=== PATIENT | female | born 1965 | race Caucasian/White ===

== ENCOUNTER 2023-03-05 20:10 | Emergency (ER) | payer OTHER ==
--- OUTSIDE RECORDS SUMMARY | 2023-03-05 20:15 | XMS REPORT | Continuity of Care Document ---
:1965 Author Organization [facility] t Address [address] [place] [address] [place] [id number] Care Team Providers Name Role Phone ROSINA PIMENTEL Primary Care Physician Unavailable SCOTTY JUAREZ Attending Clinician Unavailable ZOË GROVE Attending Clinician Unavailable DEE ARMSTRONG Attending Clinician Unavailable LISHA HAIRSTON Attending Clinician Unavailable LISHA HAIRSTON Attending Clinician Unavailable Zoë Grove MD Attending Clinician Lab, Ang - Db Attending Clinician Unavailable Doctor Unassigned, [place] Attending Clinician Unavailable ROSINA PIMENTEL Attending Clinician Unavailable Payers Payer Name Policy Type Policy Number Effective Date Expiration Date S padmaja [employer] MEDICARE [id number] 2020 ADV 00:00:00 Problems Condition Condition Condition Status Onset Resolution Last Treating Co mments Source Name Details Category Date Date Treatment Clinician Date Herniated Herniated Disease Active Uni vers cervical cervical 7-28 ity [place] interverte [place]verte 00:[place] bral disc bral disc 00 Medi veronique Branch Herniated Herniated Disease Active Uni vers lumbar lumbar 7-28 ity of interverte interverte 00:[place] bral disc bral disc 00 Medi veronique Branch Acquired Acquired Disease Active Unive rs hypothyroi hypothyroi 7-28 it y of dism dism 00:00: [place] 00 Medical Branch Gastroesop Gastroesop Disease Active U nivers hageal hageal 7- ity of reflux reflux 00:00: [place] disease disease 00 Medical without without Branch esophagiti esophagiti s s Anxiety Anxiety Disease Active Univers disorder disorder 01-12 ity of 00:00: 00 Medical Branch Mild Mild Disease Active Univers intermitte intermitte 01-12 it y of nt asthma nt asthma 00:00: [place] without without 00 Medical complicati complicati Br anch on on Migraine Migraine Disease Active Unive rs without without 01-12 ity of aura and aura and 00:00: [place] without without 00 Medical status status Branch migrainosu migrainosu s, not s, not intractabl intractabl e e Allergies, Adverse Reactions, Alerts Allergy Allergy Status Severity Reaction(s) Onset Inactive Treating Comm ents Source Name Type Date Date Clinician Penicill Propensi Active Itching Unive rs in ty to 01-12 ity of adverse 00:00: [place] reaction 00 Medical s to Branch drug Sulfa Propensi Active Other - See Uni vers (Sulfona ty to comments 01-12 ity of mide adverse 00:00: [place] Antibiot reaction 00 Medica l ics) s to Branch drug Venom-Wa Propensi Active Anaphylaxis Red wasp s Univers sp ty to 01-12 ity of adverse 00:00: [place] reaction 00 Medical s to Branch drug SULFA Drug Active High Hallucinates Univ ers (SULFONA Class 01-12 ity of MIDE 00:00: [place] ANTIBIOT 00 Medical ICS) Branch VENOM-WA DRUG Active High Anaphylaxis Uni vers SP INGREDI 01-12 ity of 00:00: [place] 00 Medical Branch PENICILL DRUG Active Med Hives Univers IN INGREDI 01-12 ity of 00:00: [place] 00 Medical Branch NO KNOWN Drug Active Univers ALLERGIE Class ity of S [facility] Social History Social Habit Start Date Stop Date Quantity Comments Source Gender identity Universit y of [facility] Sexual orientation Univer sity of [facility] Alcohol intake 2023-02-15 2023-02-15 .29 /d University of 00:00:00 00:00:00 [facility] Tobacco use and 2023-01-12 2023-01-12 Smokeless Universit y of exposure 00:00:00 00:00:00 tobacco non-user [facility] History of Social 2023-01-12 2023-01-12 Univers ity of function 00:00:00 00:00:00 [facility] Sex [birth year] Universit y of 00:00:00 00:00:00 [facility] Smoking Status Start Date Stop Date Source Never smoked tobacco [facility] Medications Ordered Filled Start Stop Current Ordering Indication Dosage Frequency Signature Comments Components Source Medication Medication Date Date Medication? Clinician (SIG) Name Name HYDROcodone 3-0 Yes 2745 1{tbl} Take 1 Un robert -acetaminop 9-13 tablet by ity of hen 10-325 00:00: mouth [place] mg tablet 00 every 6 Medical (six) Branch hours as needed for Pain (scale 7-10). Indication s: chronic pain HYDROcodone 2023-0 Yes 2745 1{tbl} Take 1 Un robert -acetaminop 9-13 tablet by ity of hen 10-325 00:00: mouth [place] mg tablet 00 every 6 Medical (six) Branch hours as needed for Pain (scale 7-10). Indication s: chronic pain gabapentin 2023-0 Yes 300mg Take 0.5 Un robert 600 mg 8-31 tablets by ity of tablet 11:10: mouth at [place] [address] bedtime. Medical Branch gabapentin 2023-0 Yes 300mg Take 0.5 Un [place] 600 mg 8-31 tablets by ity of tablet 11:10: mouth at [place] [address] bedtime. Medical Branch gabapentin 2023-0 Yes 300mg Take 0.5 [place] 600 mg 8-31 tablets by ity of tablet 11:10: mouth at [place] [address] bedtime. Medical Branch gabapentin 2023-0 Yes 300mg Take 0.5 Un [place] 600 mg 8-31 tablets by ity of tablet 11:10: mouth at [place] [address] bedtime. Medical Branch gabapentin 2023-0 Yes 300mg Take 0.5 Un [place] 600 mg 8-31 tablets by ity of tablet 11:10: mouth at [place] [address] bedtime. Medical Branch gabapentin 2023-0 Yes 300mg Take 0.5 [place] 600 mg 8-31 tablets by ity of tablet 11:10: mouth at [place] [address] bedtime. Medical Branch gabapentin 2023-0 Yes 300mg Take 0.5 Un [place] 600 mg 8-31 tablets by ity of tablet 11:10: mouth at [place] 24 bedtime. Medical Branch gabapentin 2023-0 Yes 300mg Take 0.5 Un ro[place] 600 mg 8-31 tablets by ity of tablet 11:10: mouth at [place] 24 bedtime. Medical Branch progesteron 2023-0 2023- No 100mg Take 1 Un robert e 100 mg 7-28 -28 capsule by ity of capsule 08:38: 00:00 mouth in [place] 36 :00 the Medical morning. Branch ondansetron 2023-0 2023- No 4mg Take 1 Uni vers 4 mg tablet 7-12 01-28 tablet by it y of 08:38: 00:00 mouth [place] 36 :00 every 6 Medical (six) Branch hours as needed for Nausea and Vomiting (N/V). progesteron 3-0 2023- No 100mg Take 1 Un robert e 100 mg 7-12 01- capsule by ity of capsule 08:38: 00:00 mouth in [place] 36 :00 the Medical morning. Branch ondansetron 2022-0 2023- No 4mg Take 1 Uni vers 4 mg tablet 7-12 01- tablet by it y of 08:38: 00:00 mouth [place] 36 :00 every 6 Medical (six) Branch hours as needed for Nausea and Vomiting (N/V). gabapentin 2023-0 Yes 300mg Take 0.5 Un ro[place] 600 mg 7-28 tablets by ity of tablet 08:27: mouth at [place] [address] bedtime. Medical Branch gabapentin 2023-0 Yes 300mg Take 0.5 Un ro[place] 600 mg 7-28 tablets by ity of tablet 08:27: mouth at [place] [address] bedtime. Medical Branch gabapentin 2023-0 Yes 300mg Take 0.5 Un [place] 600 mg 7-28 tablets by ity of tablet 08:27: mouth at [place] [address] bedtime. Medical Branch gabapentin 2023-0 Yes 300mg Take 0.5 Un [place] 600 mg 7-28 tablets by ity of tablet 08:27: mouth at [place] 34 bedtime. Medical Branch pantoprazol 2023-0 Yes 40mg Take 1 Univ ers e 40 mg EC 7-28 tablet by ity of tablet 08:12: mouth once [place] 32 daily as Medical needed for Branch Indigestio n. pantoprazol 2023-0 Yes 40mg Take 1 Univ ers e 40 mg EC 7-28 tablet by ity of tablet 08:12: mouth once [place] 32 daily as Medical needed for Branch Indigestio n. pantoprazol 2023-0 Yes 40mg Take 1 Univ ers e 40 mg EC 7-28 tablet by ity of tablet 08:12: mouth once [place] 32 daily as Medical needed for Branch Indigestio n. pantoprazol 2023-0 Yes 40mg Take 1 Univ ers e 40 mg EC 7-28 tablet by ity of tablet 08:12: mouth once [place] 32 daily as Medical needed for Branch Indigestio n. pantoprazol 2023-0 Yes 40mg Take 1 Univ ers e 40 mg EC 7-28 tablet by ity of tablet 08:12: mouth once [place] 32 daily as Medical needed for Branch Indigestio n. pantoprazol 2023-0 Yes 40mg Take 1 Univ ers e 40 mg EC 7-28 tablet by ity of tablet 08:12: mouth once [place] 32 daily as Medical needed for Branch Indigestio n. pantoprazol 2023-0 Yes 40mg Take 1 Univ ers e 40 mg EC 7-28 tablet by ity of tablet 08:12: mouth once [place] 32 daily as Medical needed for Branch Indigestio n. pantoprazol 2023-0 Yes 40mg Take 1 Univ ers e 40 mg EC 7-28 tablet by ity of tablet 08:12: mouth once [place] 32 daily as Medical needed for Branch Indigestio n. pantoprazol 2023-0 Yes 40mg Take 1 Univ ers e 40 mg EC 7-28 tablet by ity of tablet 08:12: mouth once [place] 32 daily as Medical needed for Branch Indigestio n. pantoprazol 2023-0 Yes 40mg Take 1 Univ ers e 40 mg EC 7-28 tablet by ity of tablet 08:12: mouth once [place] 32 daily as Medical needed for Branch Indigestio n. pantoprazol 2023-0 Yes 40mg Take 1 Univ ers e 40 mg EC 7-28 tablet by ity of tablet 08:12: mouth once [place] 32 daily as Medical needed for Branch Indigestio n. pantoprazol 2023-0 Yes 40mg Take 1 Univ ers e 40 mg EC 7-28 tablet by ity of tablet 08:12: mouth once [place] 32 daily as Medical needed for Branch Indigestio n. ondansetron 3-0 Yes [id number] 4mg Take 1 Univers 4 mg tablet 7-28 tablet by ity of 00:00: mouth [place] 00 every 8 Medical (eight) Branch hours as needed for Nausea and Vomiting (N/V). progesteron 2023-0 Yes [id number] 100mg Take 1 Univers e 100 mg 7-28 capsule by ity o f capsule 00:00: mouth in [place] 00 the Medical morning. Branch ondansetron 3-0 Yes [id number] 4mg Take 1 Univers 4 mg tablet 7-28 tablet by ity of 00:00: mouth [place] 00 every 8 Medical (eight) Branch hours as needed for Nausea and Vomiting (N/V). progesteron 2023-0 Yes [id number] 100mg Take 1 Univers e 100 mg 7-28 capsule by ity o f capsule 00:00: mouth in [place] 00 the Medical morning. Branch ondansetron 2022-0 Yes [id number] 4mg Take 1 Univers 4 mg tablet 7-28 tablet by ity of 00:00: mouth [place] 00 every 8 Medical (eight) Branch hours as needed for Nausea and Vomiting (N/V). progesteron 3-0 Yes [id number] 100mg Take 1 Univers e 100 mg 7-28 capsule by ity o f capsule 00:00: mouth in [place] 00 the Medical morning. Branch ondansetron 2022-0 Yes [id number] 4mg Take 1 Univers 4 mg tablet 7-28 tablet by ity of 00:00: mouth [place] 00 every 8 Medical (eight) Branch hours as needed for Nausea and Vomiting (N/V). progesteron 2023-0 Yes [id number] 100mg Take 1 Univers e 100 mg 7-28 capsule by ity o f capsule 00:00: mouth in [place] 00 the Medical morning. Branch ondansetron 3-0 Yes [id number] 4mg Take 1 Univers 4 mg tablet 7-28 tablet by ity of 00:00: mouth [place] 00 every 8 Medical (eight) Branch hours as needed for Nausea and Vomiting (N/V). progesteron 2023-0 Yes [id number] 100mg Take 1 Univers e 100 mg 7-28 capsule by ity o f capsule 00:00: mouth in [place] 00 the Medical morning. Branch ondansetron 3-0 Yes [id number] 4mg Take 1 Univers 4 mg tablet 7-28 tablet by ity of 00:00: mouth [place] 00 every 8 Medical (eight) Branch hours as needed for Nausea and Vomiting (N/V). progesteron 2023-0 Yes [id number] 100mg Take 1 Univers e 100 mg 7-28 capsule by ity o f capsule 00:00: mouth in [place] 00 the Medical morning. Branch ondansetron 3-0 Yes [id number] 4mg Take 1 Univers 4 mg tablet 7-28 tablet by ity of 00:00: mouth [place] 00 every 8 Medical (eight) Branch hours as needed for Nausea and Vomiting (N/V). progesteron 2023-0 Yes [id number] 100mg Take 1 Univers e 100 mg 7-28 capsule by ity o f capsule 00:00: mouth in [place] 00 the Medical morning. Branch ondansetron 3-0 Yes [id number] 4mg Take 1 Univers 4 mg tablet 7-28 tablet by ity of 00:00: mouth [place] 00 every 8 Medical (eight) Branch hours as needed for Nausea and Vomiting (N/V). progesteron 2023-0 Yes [id number] 100mg Take 1 Univers e 100 mg 7-28 capsule by ity o f capsule 00:00: mouth in [place] 00 the Medical morning. Branch ondansetron 3-0 Yes [id number] 4mg Take 1 Univers 4 mg tablet 7-28 tablet by ity of 00:00: mouth [place] 00 every 8 Medical (eight) Branch hours as needed for Nausea and Vomiting (N/V). progesteron 2023-0 Yes [id number] 100mg Take 1 Univers e 100 mg 7-28 capsule by ity o f capsule 00:00: mouth in [place] 00 the Medical morning. Branch ondansetron 3-0 Yes [id number] 4mg Take 1 Univers 4 mg tablet 7-28 tablet by ity of 00:00: mouth [place] 00 every 8 Medical (eight) Branch hours as needed for Nausea and Vomiting (N/V). progesteron 2023-0 Yes [id number] 100mg Take 1 Univers e 100 mg 7-28 capsule by ity o f capsule 00:00: mouth in [place] 00 the Medical morning. Branch ondansetron 2023-0 Yes [id number] 4mg Take 1 Univers 4 mg tablet 7-28 tablet by ity of 00:00: mouth [place] 00 every 8 Medical (eight) Branch hours as needed for Nausea and Vomiting (N/V). progesteron 2023-0 Yes [id number] 100mg Take 1 Univers e 100 mg 7-28 capsule by ity o f capsule 00:00: mouth in [place] 00 the Medical morning. Branch ondansetron 3-0 Yes [id number] 4mg Take 1 Univers 4 mg tablet 7-28 tablet by ity of 00:00: mouth [place] 00 every 8 Medical (eight) Branch hours as needed for Nausea and Vomiting (N/V). progesteron 2023-0 Yes [id number] 100mg Take 1 Univers e 100 mg 7-28 capsule by ity o f capsule 00:00: mouth in [place] the Medical morning. Branch clonazePAM 3-0 Yes PLEASE SEE U nivers 1 mg tablet 7-25 ATTACHED ity of 00:00: FOR [place] DETAILED Medical DIRECTIONS Branch clonazePAM 2023-0 Yes PLEASE SEE U nivers 1 mg tablet 7-25 ATTACHED ity of 00:00: FOR [place] DETAILED Medical DIRECTIONS Branch clonazePAM 2023-0 Yes PLEASE SEE U nivers 1 mg tablet 7-25 ATTACHED ity of 00:00: FOR [place] DETAILED Medical DIRECTIONS Branch clonazePAM 2023-0 Yes PLEASE SEE U nivers 1 mg tablet 7-25 ATTACHED ity of 00:00: FOR [place] DETAILED Medical DIRECTIONS Branch clonazePAM 2023-0 Yes PLEASE SEE U nivers 1 mg tablet 7-25 ATTACHED ity of 00:00: FOR [place] DETAILED Medical DIRECTIONS Branch clonazePAM 2023-0 Yes PLEASE SEE U nivers 1 mg tablet 7-25 ATTACHED ity of 00:00: FOR [place] DETAILED Medical DIRECTIONS Branch clonazePAM 2023-0 Yes PLEASE SEE U nivers 1 mg tablet 7-25 ATTACHED ity of 00:00: FOR [place] DETAILED Medical DIRECTIONS Branch clonazePAM 2023-0 Yes PLEASE SEE U nivers 1 mg tablet 7-25 ATTACHED ity of 00:00: FOR [place] DETAILED Medical DIRECTIONS Branch HYDROcodone 2023-0 Yes TAKE 1 Univ ers -acetaminop 7-18 TABLET BY ity of hen 10-325 00:00: MOUTH FOUR [place] mg tablet 00 TIMES A Medical DAY Branch HYDROcodone 2023-0 Yes TAKE 1 Univ ers -acetaminop 7-18 TABLET BY ity of hen 10-325 00:00: MOUTH FOUR [place] mg tablet 00 TIMES A Medical DAY Branch HYDROcodone 2022-0 Yes TAKE 1 Univ ers -acetaminop 7-18 TABLET BY ity of hen 10-325 00:00: MOUTH FOUR [place] mg tablet 00 TIMES A Medical DAY Branch HYDROcodone 2022-0 Yes TAKE 1 Univ ers -acetaminop 7-18 TABLET BY ity of hen 10-325 00:00: MOUTH FOUR [place] mg tablet 00 TIMES A Medical DAY Branch HYDROcodone 2022-0 Yes TAKE 1 Univ ers -acetaminop 7-18 TABLET BY ity of hen 10-325 00:00: MOUTH FOUR [place] mg tablet 00 TIMES A Medical DAY Branch HYDROcodone 2022-0 Yes TAKE 1 Univ ers -acetaminop 7-18 TABLET BY ity of hen 10-325 00:00: MOUTH FOUR [place] mg tablet 00 TIMES A Medical DAY Branch HYDROcodone 2022-0 Yes TAKE 1 Univ ers -acetaminop 7-18 TABLET BY ity of hen 10-325 00:00: MOUTH FOUR [place] mg tablet 00 TIMES A Medical DAY Branch HYDROcodone 2022-0 Yes TAKE 1 Univ ers -acetaminop 7-18 TABLET BY ity of hen 10-325 00:00: MOUTH FOUR [place] mg tablet 00 TIMES A Medical DAY Branch HYDROcodone 2022-0 Yes TAKE 1 Univ ers -acetaminop 7-18 TABLET BY ity of hen 10-325 00:00: MOUTH FOUR [place] mg tablet 00 TIMES A Medical DAY Branch HYDROcodone 2022-0 Yes TAKE 1 Univ ers -acetaminop 7-18 TABLET BY ity of hen 10-325 00:00: MOUTH FOUR [place] mg tablet 00 TIMES A Medical DAY Branch HYDROcodone 2023-0 2023- No TAKE 1 Uni vers -acetaminop 7-18 09-13 TABLET BY it y of hen 10-325 00:00: 00:00 MOUTH FOUR [place] mg tablet 00 :00 TIMES A Medical DAY Branch dextroamphe 3-0 Yes 20mg Take 1 Univ ers tamine-amph 6-27 tablet by ity of etamine 20 00:00: mouth in [place] mg tablet 00 the Medical morning Branch and 1 tablet at noon and 1 tablet in the evening. dextroamphe 2023-0 Yes 20mg Take 1 Univ ers tamine-amph 6-27 tablet by ity of etamine 20 00:00: mouth in [place] mg tablet 00 the Medical morning Branch and 1 tablet at noon and 1 tablet in the evening. dextroamphe 2023-0 Yes 20mg Take 1 Univ ers tamine-amph 6-27 tablet by ity of etamine 20 00:00: mouth in [place] mg tablet 00 the Medical morning Branch and 1 tablet at noon and 1 tablet in the evening. dextroamphe 2023-0 Yes 20mg Take 1 Univ ers tamine-amph 6-27 tablet by ity of etamine 20 00:00: mouth in [place] mg tablet 00 the Medical morning Branch and 1 tablet at noon and 1 tablet in the evening. dextroamphe 2023-0 Yes 20mg Take 1 Univ ers tamine-amph 6-27 tablet by ity of etamine 20 00:00: mouth in [place] mg tablet 00 the Medical morning Branch and 1 tablet at noon and 1 tablet in the evening. dextroamphe 2023-0 Yes 20mg Take 1 Univ ers tamine-amph 6-27 tablet by ity of etamine 20 00:00: mouth in [place] mg tablet 00 the Medical morning Branch and 1 tablet at noon and 1 tablet in the evening. dextroamphe 2023-0 Yes 20mg Take 1 Univ ers tamine-amph 6-27 tablet by ity of etamine 20 00:00: mouth in [place] mg tablet 00 the Medical morning Branch and 1 tablet at noon and 1 tablet in the evening. dextroamphe 2023-0 Yes 20mg Take 1 Univ ers tamine-amph 6-27 tablet by ity of etamine 20 00:00: mouth in [place] mg tablet 00 the Medical morning Branch and 1 tablet at noon and 1 tablet in the evening. dextroamphe 2023-0 Yes 20mg Take 1 Univ ers tamine-amph 6-27 tablet by ity of etamine 20 00:00: mouth in [place] mg tablet 00 the Medical morning Branch and 1 tablet at noon and 1 tablet in the evening. dextroamphe 2023-0 Yes 20mg Take 1 Univ ers tamine-amph 6-27 tablet by ity of etamine 20 00:00: mouth in [place] mg tablet 00 the Medical morning Branch and 1 tablet at noon and 1 tablet in the evening. dextroamphe 2023-0 Yes 20mg Take 1 Univ ers tamine-amph 6-27 tablet by ity of etamine 20 00:00: mouth in [place] mg tablet 00 the Medical morning Branch and 1 tablet at noon and 1 tablet in the evening. dextroamphe 2023-0 Yes 20mg Take 1 Univ ers tamine-amph 6-27 tablet by ity of etamine 20 00:00: mouth in [place] mg tablet 00 the Medical morning Branch and 1 tablet at noon and 1 tablet in the evening. levothyroxi 2-0 Yes 150ug Take 1 Uni vers ne 7-24 tablet by ity of (LEVOXYL) 00:00: mouth [place] 150 mcg 00 every Medical tablet morning. Branch levothyroxi 2-0 Yes 150ug Take 1 Uni vers ne 7-24 tablet by ity of (LEVOXYL) 00:00: mouth [place] 150 mcg 00 every Medical tablet morning. Branch levothyroxi 2-0 Yes 150ug Take 1 Uni vers ne 7-24 tablet by ity of (LEVOXYL) 00:00: mouth [place] 150 mcg 00 every Medical tablet morning. Branch levothyroxi 2-0 Yes 150ug Take 1 Uni vers ne 7-24 tablet by ity of (LEVOXYL) 00:00: mouth [place] 150 mcg 00 every Medical tablet morning. Branch levothyroxi 2-0 Yes 150ug Take 1 Uni vers ne 7-24 tablet by ity of (LEVOXYL) 00:00: mouth [place] 150 mcg 00 every Medical tablet morning. Branch levothyroxi 2022-0 Yes 150ug Take 1 Uni vers ne 7-24 tablet by ity of (LEVOXYL) 00:00: mouth [place] 150 mcg 00 every Medical tablet morning. Branch levothyroxi 2-0 Yes 150ug Take 1 Uni vers ne 7-24 tablet by ity of (LEVOXYL) 00:00: mouth [place] 150 mcg 00 every Medical tablet morning. Branch levothyroxi 2022-0 Yes 150ug Take 1 Uni vers ne 7-24 tablet by ity of (LEVOXYL) 00:00: mouth [place] 150 mcg 00 every Medical tablet morning. Branch levothyroxi 2022-0 Yes 150ug Take 1 Uni vers ne 7-24 tablet by ity of (LEVOXYL) 00:00: mouth [place] 150 mcg 00 every Medical tablet morning. Branch levothyroxi 2021-0 Yes 150ug Take 1 Uni vers ne 7-24 tablet by ity of (LEVOXYL) 00:00: mouth [place] 150 mcg 00 every Medical tablet morning. Branch levothyroxi 2021-0 Yes 150ug Take 1 Uni vers ne 7-24 tablet by ity of (LEVOXYL) 00:00: mouth [place] 150 mcg 00 every Medical tablet morning. Branch levothyroxi 2021-0 Yes 150ug Take 1 Uni vers ne 7-24 tablet by ity of (LEVOXYL) 00:00: mouth [place] 150 mcg 00 every Medical tablet morning. Branch meloxicam 2015-0 Yes 15mg Take 1 Univer s 15 mg 1-01 tablet by ity of tablet 00:00: mouth in [place] 00 the Medical morning. Branch meloxicam 2015-0 Yes 15mg Take 1 Univer s 15 mg 1-01 tablet by ity of tablet 00:00: mouth in [place] 00 the Medical morning. Branch meloxicam 2015-0 Yes 15mg Take 1 Univer s 15 mg 1-01 tablet by ity of tablet 00:00: mouth in [place] 00 the Medical morning. Branch meloxicam 2015-0 Yes 15mg Take 1 Univer s 15 mg 1-01 tablet by ity of tablet 00:00: mouth in [place] 00 the Medical morning. Branch meloxicam 2015-0 Yes 15mg Take 1 Univer s 15 mg 1-01 tablet by ity of tablet 00:00: mouth in [place] 00 the Medical morning. Branch meloxicam 2016-0 Yes 15mg Take 1 Univer s 15 mg 1-01 tablet by ity of tablet 00:00: mouth in [place] 00 the Medical morning. Branch meloxicam 2016-0 Yes 15mg Take 1 Univer s 15 mg 1-01 tablet by ity of tablet 00:00: mouth in [place] 00 the Medical morning. Branch meloxicam 2016-0 Yes 15mg Take 1 Univer s 15 mg 1-01 tablet by ity of tablet 00:00: mouth in [place] 00 the Medical morning. Branch meloxicam 2016-0 Yes 15mg Take 1 Univer s 15 mg 1-01 tablet by ity of tablet 00:00: mouth in [place] 00 the Medical morning. Branch meloxicam 2016-0 Yes 15mg Take 1 Univer s 15 mg 1-01 tablet by ity of tablet 00:00: mouth in [place] 00 the Medical morning. Branch meloxicam 2016-0 Yes 15mg Take 1 Univer s 15 mg 1-01 tablet by ity of tablet 00:00: mouth in [place] 00 the Medical morning. Branch meloxicam 2016-0 Yes 15mg Take 1 Univer s 15 mg 1-01 tablet by ity of tablet 00:00: mouth in [place] 00 the Medical morning. Branch sucralfate 2015-0 Yes 1g Take 1 Unive rs 1 gram 1-01 tablet by ity of tablet 00:00: mouth 4 (four) Medical times Branch daily. dicyclomine 2015-0 Yes 20mg Take 1 Univ ers 20 mg 1-01 tablet by ity of tablet 00:00: mouth 2 (two) Medical times Branch daily as needed. sucralfate 2015-0 Yes 1g Take 1 Unive rs 1 gram 1-01 tablet by ity of tablet 00:00: mouth 4 (four) Medical times Branch daily. dicyclomine 2015-0 Yes 20mg Take 1 Univ ers 20 mg 1-01 tablet by ity of tablet 00:00: mouth 2 (two) Medical times Branch daily as needed. sucralfate 2015-0 Yes 1g Take 1 Unive rs 1 gram 1-01 tablet by ity of tablet 00:00: mouth (four) Medical times Branch daily as needed. dicyclomine 2015-0 Yes 20mg Take 1 Univ ers 20 mg 1-01 tablet by ity of tablet 00:00: mouth 2 (two) Medical times Branch daily as needed. sucralfate 2015-0 Yes 1g Take 1 Unive rs 1 gram 1-01 tablet by ity of tablet 00:00: mouth 4 (four) Medical times Branch daily as needed. dicyclomine 2015-0 Yes 20mg Take 1 Univ ers 20 mg 1-01 tablet by ity of tablet 00:00: mouth 2 00 (two) Medical times Branch daily as needed. sucralfate 2015-0 Yes 1g Take 1 Unive rs 1 gram 1-01 tablet by ity of tablet 00:00: mouth 4 00 (four) Medical times Branch daily as needed. dicyclomine 2015-0 Yes 20mg Take 1 Univ ers 20 mg 1-01 tablet by ity of tablet 00:00: mouth 2 (two) Medical times Branch daily as needed. sucralfate 2015-0 Yes 1g Take 1 Unive rs 1 gram 1-01 tablet by ity of tablet 00:00: mouth (four) Medical times Branch daily as needed. dicyclomine 2015-0 Yes 20mg Take 1 Univ ers 20 mg 1-01 tablet by ity of tablet 00:00: mouth 2 (two) Medical times Branch daily as needed. sucralfate 2015-0 Yes 1g Take 1 Unive rs 1 gram 1-01 tablet by ity of tablet 00:00: mouth (four) Medical times Branch daily as needed. dicyclomine 2015-0 Yes 20mg Take 1 Univ ers 20 mg 1-01 tablet by ity of tablet 00:00: mouth 2 (two) Medical times Branch daily as needed. sucralfate 2015-0 Yes 1g Take 1 Unive rs 1 gram 1-01 tablet by ity of tablet 00:00: mouth (four) Medical times Branch daily as needed. dicyclomine 2015-0 Yes 20mg Take 1 Univ ers 20 mg 1-01 tablet by ity of tablet 00:00: mouth 2 (two) Medical times Branch daily as needed. sucralfate 2015-0 Yes 1g Take 1 Unive rs 1 gram 1-01 tablet by ity of tablet 00:00: mouth (four) Medical times Branch daily as needed. dicyclomine 2015-0 Yes 20mg Take 1 Univ ers 20 mg 1-01 tablet by ity of tablet 00:00: mouth 2 (two) Medical times Branch daily as needed. sucralfate 2015-0 Yes 1g Take 1 Unive rs 1 gram 1-01 tablet by ity of tablet 00:00: mouth (four) Medical times Branch daily as needed. dicyclomine 2015-0 Yes 20mg Take 1 Univ ers 20 mg 1-01 tablet by ity of tablet 00:00: mouth 2 00 (two) Medical times Branch daily as needed. sucralfate 2015-0 Yes 1g Take 1 Unive rs 1 gram 1-01 tablet by ity of tablet 00:00: mouth 4 00 (four) Medical times Branch daily. dicyclomine Yes 20mg Take 1 Univ ers 20 mg - tablet by ity of tablet 00:00: mouth 2 00 (two) Medical times Branch daily as needed. sucralfate Yes 1g Take 1 Unive rs 1 gram - tablet by ity of tablet 00:00: mouth 4 00 (four) Medical times Branch daily. dicyclomine Yes 20mg Take 1 Univ ers 20 mg - tablet by ity of tablet 00:00: mouth 2 00 (two) Medical times Branch daily as needed. gabapentin No 600mg Take 1 Uni vers 600 mg 06-18 tablet by ity of tablet 00:00: 00:00 mouth in [place] 00 :00 the Medical morning Branch and 1 tablet at noon and 1 tablet in the evening. gabapentin No 600mg Take 1 Uni vers 600 mg 06-18 tablet by ity of tablet 00:00: 00:00 mouth in [place] 00 :00 the Medical morning Branch and 1 tablet at noon and 1 tablet in the evening. fluticasone Yes 2{spray Use 2 Un robert propionate 1- } Sprays in ity of (ALLERGY 00:00: each [place] RELIEF, 00 nostril Medical FLUTICASONE once daily Br anch ,) 50 as needed mcg/actuati for on nasal Allergies. spray montelukast Yes 10mg Take 1 Univ ers 10 mg - tablet by ity of tablet 00:00: mouth at [place] 00 bedtime. Medical Branch fluticasone Yes 2{spray Use 2 Un robert propionate 1-01 } Sprays in ity of (ALLERGY 00:00: each [place] RELIEF, 00 nostril Medical FLUTICASONE once daily Br anch ,) 50 as needed mcg/actuati for on nasal Allergies. spray montelukast Yes 10mg Take 1 Univ ers 10 mg - tablet by ity of tablet 00:00: mouth at [place] 00 bedtime. Medical Branch fluticasone Yes 2{spray Use 2 Un robert propionate 1-01 } Sprays in ity of (ALLERGY 00:00: each [place] RELIEF, 00 nostril Medical FLUTICASONE once daily Br anch ,) 50 as needed mcg/actuati for on nasal Allergies. spray montelukast Yes 10mg Take 1 Univ ers 10 mg 1-01 tablet by ity of tablet 00:00: mouth at [place] 00 bedtime. Medical Branch fluticasone Yes 2{spray Use 2 Un robert propionate 1-01 } Sprays in ity of (ALLERGY 00:00: each [place] RELIEF, 00 nostril Medical FLUTICASONE once daily Br anch ,) 50 as needed mcg/actuati for on nasal Allergies. spray montelukast Yes 10mg Take 1 Univ ers 10 mg 1-01 tablet by ity of tablet 00:00: mouth at [place] 00 bedtime. Medical Branch fluticasone Yes 2{spray Use 2 Un robert propionate 1-01 } Sprays in ity of (ALLERGY 00:00: each [place] RELIEF, 00 nostril Medical FLUTICASONE once daily Br anch ,) 50 as needed mcg/actuati for on nasal Allergies. spray montelukast Yes 10mg Take 1 Univ ers 10 mg 1-01 tablet by ity of tablet 00:00: mouth at [place] [id number] bedtime. Medical Branch fluticasone Yes 2{spray Use 2 Un robert propionate 1-01 } Sprays in ity of (ALLERGY 00:00: each [place] RELIEF, 00 nostril Medical FLUTICASONE once daily Br anch ,) 50 as needed mcg/actuati for on nasal Allergies. spray montelukast Yes 10mg Take 1 Univ ers 10 mg 1-01 tablet by ity of tablet 00:00: mouth at [place] [id number] bedtime. Medical Branch fluticasone Yes 2{spray Use 2 Un robert propionate 1-01 } Sprays in ity of (ALLERGY 00:00: each [place] RELIEF, 00 nostril Medical FLUTICASONE once daily Br anch ,) 50 as needed mcg/actuati for on nasal Allergies. spray montelukast Yes 10mg Take 1 Univ ers 10 mg 1-01 tablet by ity of tablet 00:00: mouth at [place] [id number] bedtime. Medical Branch fluticasone 0 Yes 2{spray Use 2 Un robert propionate 1-01 } Sprays in ity of (ALLERGY 00:00: each [place] RELIEF, 00 nostril Medical FLUTICASONE once daily Br anch ,) 50 as needed mcg/actuati for on nasal Allergies. spray montelukast 0 Yes 10mg Take 1 Univ ers 10 mg 1-01 tablet by ity of tablet 00:00: mouth at [place] 00 bedtime. Medical Branch fluticasone Yes 2{spray Use 2 Un robert propionate 1-01 } Sprays in ity of (ALLERGY 00:00: each [place] RELIEF, 00 nostril Medical FLUTICASONE once daily Br anch ,) 50 as needed mcg/actuati for on nasal Allergies. spray montelukast Yes 10mg Take 1 Univ ers 10 mg 1-01 tablet by ity of tablet 00:00: mouth at [place] 00 bedtime. Medical Branch fluticasone Yes 2{spray Use 2 Un robert propionate 1-01 } Sprays in ity of (ALLERGY 00:00: each [place] RELIEF, 00 nostril Medical FLUTICASONE once daily Br anch ,) 50 as needed mcg/actuati for on nasal Allergies. spray montelukast Yes 10mg Take 1 Univ ers 10 mg 1-01 tablet by ity of tablet 00:00: mouth at [place] 00 bedtime. Medical Branch fluticasone Yes 2{spray Use 2 Un robert propionate 1-01 } Sprays in ity of (ALLERGY 00:00: each [place] RELIEF, 00 nostril Medical FLUTICASONE once daily Br anch ,) 50 as needed mcg/actuati for on nasal Allergies. spray montelukast Yes 10mg Take 1 Univ ers 10 mg 1-01 tablet by ity of tablet 00:00: mouth at [place] 00 bedtime. Medical Branch fluticasone Yes 2{spray Use 2 Un robert propionate 1-01 } Sprays in ity of (ALLERGY 00:00: each [place] RELIEF, 00 nostril Medical FLUTICASONE once daily Br anch ,) 50 as needed mcg/actuati for on nasal Allergies. spray montelukast Yes 10mg Take 1 Univ ers 10 mg 1-01 tablet by ity of tablet 00:00: mouth at [place] 00 bedtime. Medical Branch EPINEPHrine 0 Yes Univer s (EPIPEN) 1- ity of 0.3 mg/0.3 00:00: [place] mL 00 Medical injection Branch EPINEPHrine Yes Univer s (EPIPEN) 1 ity of 0.3 mg/0.3 00:00: [place] mL 00 Medical injection Branch EPINEPHrine Yes Univer s (EPIPEN) 06-18 ity of 0.3 mg/0.3 00:00: [place] mL 00 Medical injection Branch EPINEPHrine Yes Univer s (EPIPEN) 1 ity of 0.3 mg/0.3 00:00: [place] mL 00 Medical injection Branch EPINEPHrine Yes Univer s (EPIPEN) 06-18 ity of 0.3 mg/0.3 00:00: [place] mL 00 Medical injection Branch EPINEPHrine Yes Univer s (EPIPEN) 06-18 ity of 0.3 mg/0.3 00:00: [place] mL 00 Medical injection Branch EPINEPHrine Yes Univer s (EPIPEN) 06-18 ity of 0.3 mg/0.3 00:00: [place] mL 00 Medical injection Branch EPINEPHrine Yes Univer s (EPIPEN) 1 ity of 0.3 mg/0.3 00:00: [place] mL 00 Medical injection Branch EPINEPHrine Yes Univer s (EPIPEN) 1 ity of 0.3 mg/0.3 00:00: [place] mL 00 Medical injection Branch EPINEPHrine Yes Univer s (EPIPEN) 1 ity of 0.3 mg/0.3 00:00: [place] mL 00 Medical injection Branch EPINEPHrine Yes Univer s (EPIPEN) 1 ity of 0.3 mg/0.3 00:00: [place] mL 00 Medical injection Branch EPINEPHrine Yes Univer s (EPIPEN) 1 ity of 0.3 mg/0.3 00:00: [place] mL 00 Medical injection Branch Butalbital- Yes 2{capsu Take 2 U nivers Acetaminoph 06-18 le} capsules ity of en-Caff 00:00: [place] 4 [place] (FI[place] 00 (four) Medical 50-300-40 times Branch mg per daily as capsule needed. Butalbital Yes 2{capsu Take 2 U nivers Acetaminoph 1-01 le} capsules ity of en-Caff 00:00: [place] ([place] 00 (four) Medical 50-300-40 times Branch mg per daily as capsule needed. Butalbital Yes 2{capsu Take 2 U nivers Acetaminoph 1-01 le} capsules ity of en-Caff 00:00: [place] 4 [place] ([place] 00 (four) Medical 50-300-40 times Branch mg per daily as capsule needed. Butalbital Yes 2{capsu Take 2 U nivers Acetaminoph 1-01 le} capsules ity of en-Caff 00:00: [place] ([place] 00 (four) Medical 50-300-40 times Branch mg per daily as capsule needed. Butalbital Yes 2{capsu Take 2 U nivers Acetaminoph 1-01 le} capsules ity of en-Caff 00:00: [place] mouth 4 [place] ([place] 00 (four) Medical 50-300-40 times Branch mg per daily as capsule needed. Butalbital Yes 2{capsu Take 2 U nivers Acetaminoph 1-01 le} capsules ity of en-Caff 00:00: [place] mouth 4 [place] ([place] 00 (four) Medical 50-300-40 times Branch mg per daily as capsule needed. Butalbital Yes 2{capsu Take 2 U nivers Acetaminoph 1-01 le} capsules ity of en-Caff 00:00: [place] mouth 4 [place] ([place] 00 (four) Medical 50-300-40 times Branch mg per daily as capsule needed. Butalbital Yes 2{capsu Take 2 U nivers Acetaminoph 1-01 le} capsules ity of en-Caff 00:00: [place] mouth 4 [place] ([place] 00 (four) Medical 50-300-40 times Branch mg per daily as capsule needed. Butalbital Yes 2{capsu Take 2 U nivers Acetaminoph 1-01 le} capsules ity of en-Caff 00:00: [place] mouth 4 [place] ([place] 00 (four) Medical 50-300-40 times Branch mg per daily as capsule needed. Butalbital- Yes 2{capsu Take 2 U nivers Acetaminoph 1-01 le} capsules ity of en-Caff 00:00: [place] mouth 4 [place] ([place] 00 (four) Medical 50-300-40 times Branch mg per daily as capsule needed. Butalbital- Yes 2{capsu Take 2 U nivers Acetaminoph 1-01 le} capsules ity of en-Caff 00:00: by mouth 4 [place] ([place]) 00 (four) Medical 50-300-40 times Branch mg per daily as capsule needed. Butalbital- Yes 2{capsu Take 2 U nivers Acetaminoph 1-01 le} capsules ity of en-Caff 00:00: [place] mouth 4 [place] ([place] 00 (four) Medical 50-300-40 times Branch mg per daily as capsule needed. OXcarbazepi 1993-0 Yes 600mg Take 1 Uni vers ne 1-01 tablet by ity of (TRILEPTAL) 00:00: mouth in [place] 600 mg 00 the Medical tablet morning Branch and 1 tablet in the evening. OXcarbazepi 1993-0 Yes 600mg Take 1 Uni vers ne 1-01 tablet by ity of (TRILEPTAL) 00:00: mouth in [place] 600 mg 00 the Medical tablet morning Branch and 1 tablet in the evening. OXcarbazepi 1993-0 Yes 600mg Take 1 Uni vers ne 1-01 tablet by ity of (TRILEPTAL) 00:00: mouth in [place] 600 mg 00 the Medical tablet morning Branch and 1 tablet in the evening. OXcarbazepi 1993-0 Yes 600mg Take 1 Uni vers ne 1-01 tablet by ity of (TRILEPTAL) 00:00: mouth in [place] 600 mg 00 the Medical tablet morning Branch and 1 tablet in the evening. OXcarbazepi 1993-0 Yes 600mg Take 1 Uni vers ne 1-01 tablet by ity of (TRILEPTAL) 00:00: mouth in [place] 600 mg 00 the Medical tablet morning Branch and 1 tablet in the evening. OXcarbazepi 1993-0 Yes 600mg Take 1 Uni vers ne 1-01 tablet by ity of (TRILEPTAL) 00:00: mouth in [place] 600 mg 00 the Medical tablet morning Branch and 1 tablet in the evening. OXcarbazepi 1993-0 Yes 600mg Take 1 Uni vers ne 1-01 tablet by ity of (TRILEPTAL) 00:00: mouth in [place] 600 mg 00 the Medical tablet morning Branch and 1 tablet in the evening. OXcarbazepi 1993-0 Yes 600mg Take 1 Uni vers ne 1-01 tablet by ity of (TRILEPTAL) 00:00: mouth in [place] 600 mg 00 the Medical tablet morning Branch and 1 tablet in the evening. OXcarbazepi 1993-0 Yes 600mg Take 1 Uni vers ne 1-01 tablet by ity of (TRILEPTAL) 00:00: mouth in [place] 600 mg 00 the Medical tablet morning Branch and 1 tablet in the evening. OXcarbazepi 1993-0 Yes 600mg Take 1 Uni vers ne 1-01 tablet by ity of (TRILEPTAL) 00:00: mouth in [place] 600 mg 00 the Medical tablet morning Branch and 1 tablet in the evening. OXcarbazepi 1993-0 Yes 600mg Take 1 Uni vers ne 1-01 tablet by ity of (TRILEPTAL) 00:00: mouth in [place] 600 mg 00 the Medical tablet morning Branch and 1 tablet in the evening. OXcarbazepi 1993-0 Yes 600mg Take 1 Uni vers ne 1-01 tablet by ity of (TRILEPTAL) 00:00: mouth in [place] 600 mg 00 the Medical tablet morning Branch and 1 tablet in the evening. albuterol Yes 2{puff} Inhale 2 U nivers 90 1-01 Puffs ity of mcg/actuati 00:00: every 4 [place] as on inhaler 00 (four) Medical hours as Branch needed. albuterol Yes 2{puff} Inhale 2 U nivers 90 1-01 Puffs ity of mcg/actuati 00:00: every 4 [place] on inhaler 00 (four) Medical hours as Branch needed. albuterol Yes 2{puff} Inhale 2 U nivers 90 1-01 Puffs ity of mcg/actuati 00:00: every 4 [place] on inhaler 00 (four) Medical hours as Branch needed. albuterol Yes 2{puff} Inhale 2 U nivers 90 1-01 Puffs ity of mcg/actuati 00:00: every 4 [place] on inhaler 00 (four) Medical hours as Branch needed. albuterol Yes 2{puff} Inhale 2 U nivers 90 1-01 Puffs ity of mcg/actuati 00:00: every 4 [place] on inhaler 00 (four) Medical hours as Branch needed. albuterol Yes 2{puff} Inhale 2 U nivers 90 1-01 Puffs ity of mcg/actuati 00:00: every 4 [place] on inhaler 00 (four) Medical hours as Branch needed. albuterol Yes 2{puff} Inhale 2 U nivers 90 1-01 Puffs ity of mcg/actuati 00:00: every 4 [place] on inhaler 00 (four) Medical hours as Branch needed. albuterol Yes 2{puff} Inhale 2 U nivers 90 1-01 Puffs ity of mcg/actuati 00:00: every 4 [place] on inhaler 00 (four) Medical hours as Branch needed. albuterol Yes 2{puff} Inhale 2 U nivers 90 1-01 Puffs ity of mcg/actuati 00:00: every 4 [place] on inhaler 00 (four) Medical hours as Branch needed. albuterol Yes 2{puff} Inhale 2 U nivers 90 1-01 Puffs ity of mcg/actuati 00:00: every 4 [place] on inhaler 00 (four) Medical hours as Branch needed. albuterol Yes 2{puff} Inhale 2 U nivers 90 1-01 Puffs ity of mcg/actuati 00:00: every 4 [place] on inhaler 00 (four) Medical hours as Branch needed. albuterol Yes 2{puff} Inhale 2 U nivers 90 1-01 Puffs ity of mcg/actuati 00:00: every 4 [place] on inhaler 00 (four) Medical hours as Branch needed. Vital Signs Vital Name Observation Time Observation Value Comments Source Systolic blood 2023-02-15 15:59:00 123 mm[Hg] Univer sity of pressure [facility] Diastolic blood 2023-02-15 15:59:00 73 mm[Hg] Unive rsity of [facility] Heart rate 2023-02-15 15:59:00 84 /min Universi ty of [facility] Body temperature 2023-02-15 15:59:00 [facility].44 [facility] Respiratory rate 2023-02-15 15:59:00 18 /min Univ ersity of [facility] Body height 2023-02-15 15:59:00 149.9 cm Universi ty of [facility] Body weight 2023-02-15 15:59:00 59.739 kg Universi ty of [facility] BMI 2023-02-15 15:59:00 26.60 kg/m2 Universi ty of [place] [facility] Oxygen saturation in 2023-02-15 15:59:00 99 /min University of Arterial blood by [employer] Pulse oximetry Branch Systolic blood 2023-01-12 12:59:00 115 mm[Hg] Univer sity of [facility] Diastolic blood 2023-01-12 12:59:00 71 mm[Hg] Unive rsity of [facility] Heart rate 2023-01-12 12:59:00 79 /min Universi ty of [facility] Respiratory rate 2023-01-12 12:59:00 18 /min [facility] Body height 2023-01-12 12:59:00 149.9 cm Universi ty of [place] [facility] Body weight 2023-01-12 12:59:00 60.601 kg Universi ty of [place] [facility] BMI 2023-01-12 12:59:00 26.98 kg/m2 Universi ty of [facility] Branch Oxygen saturation in 2023-01-12 12:59:00 97 /min University of Arterial blood by [employer] Pulse oximetry Branch Procedures Procedure Date / Time Performing Clinician Source Performed CREATINE KINASE 2023-02-15 17:08:00 Zainab Grove f [place] Zoë [facility] URIC ACID 2023-02-15 17:08:00 [facility] f [facility] RHEUMATOID FACTOR 2023-02-15 17:08:00 [facility] C-REACTIVE PROTEIN 2023-02-15 17:08:00 [facility] SEDIMENTATION RATE 2023-02-15 17:08:00 [facility] VITAMIN D, 25-OH 2023-02-15 17:08:00 [facility] HIV 1/2 AG-AB WITH 2023-02-15 17:08:00 [facility] REFLEX [facility] SYPHILIS IGG/IGM 2023-02-15 17:08:00 [facility] Encounters Start End Encounter Admission Attending Care Care Encounter Source Date/Time Date/Time Type Type Clinicians Facility Department ID 2023-03-04 2023-03-04 Refill [facility] [id number] [id number] Univers 00:00:00 00:00:00 , Zoë Novaliq 350.1.13.10 ity of [place] [id number] Richard as TERRANCE?BLEA [id number] [address] MEDICAL OFFICE BUILDING 2023-02-26 2023-02-26 Patient [facility] 1.2.840.114 [id number] Univers 00:00:00 00:00:00 Secure Msg , Zoë Novaliq 350.1.13.10 ity of [place] [id number] Richard as TERRANCE?BLEA [id number] [address] MEDICAL OFFICE BUILDING 2023-02-23 2023-02-23 Refill [place] [facility] 1.2.840.114 [id number] Univers 00:00:00 00:00:00 , [employer] 350.1.13.10 ity of [place] [id number] Richard as TERRANCE?BLEA [id number] [address] MEDICAL OFFICE BUILDING 2023-02-22 2023-02-22 Outpatient R PATTI [facility] [id number] Univers 15:40:00 15:40:00 DEE ity of [facility] 2023-02-15 2023-02-15 Enrollment Advisor Lab, [facility] 1.2.840.1 [id number] Univers 12:00:00 12:17:24 Visit Zoë Grove [facility] 350.1 .13.10 ity of [place] [id number] Richard as TERRANCE?BLEA [id number] Fl dicj luis [address] OFFICE [facility] 2023-02-15 2023-02-15 [facility] 1.2.840.114 [id number] Univers 11:00:00 11:48:40 Visit , Zoë [facility] 350.1.13.10 ity of [place] [id number] Richard as TERRANCE?BLEA [id number] [address] OFFICE [facility] 2023-02-15 2023-02-15 Outpatient R ESTRELLA [facility] [id number] Univers 11:00:00 11:48:40 , ZOË it y of [facility] 2023-02-09 2023-02-09 Patient Doctor MUKESH 1.2.840.114 [id number] Univers 00:00:00 00:00:00 Secure Msg Unassigned, MICHELLE 350.1.13.10 ity of [place] [facility] [id number] Richard as [id number] [address] 2023-01-12 2023-01-12 Outpatient R ESTRELLA [facility] [id number] Univers 08:45:00 09:09:12 , ZOË it y of [facility] 2023-01-12 2023-01-12 Enrollment Advisor Lab, [facility] 1.2.840.1 [id number] Univers 08:45:00 09:00:00 Visit Zoë Grove [facility] 350.1 .13.10 ity of [place] [id number] Richard as TERRANCE?BLEA [id number] Fl dical [address] MEDICAL OFFICE BUILDING 2023-01-12 2023-01-12 Office Estrella [facility] 1.2.840.[id number] [facility] 08:00:00 08:45:51 Visit , Zoë EDWARDS 350.1.13.10 ity of [place] 4.2.7.2.686 Richard as TERRANCE?BLECarina [id number] Fl deana VENTURA [address] MEDICAL OFFICE BUILDING 2022-10-10 2022-10-10 Outpatient ANNIKA PIMENTEL [facility] [id number] [facility] 00:00:00 00:00:00 [facility] Results This patient has no known results. Notes Date/Time Note Provider Source 2023-02-26 15:22:32-00:00 Formatting of this note is d ifferent from the original. [facility] Refill denied: Too soon to refill Requested Prescriptions Pending Prescriptions Disp Refills PROGESTERONE 100 mg capsule [Pharmacy Med Name: PROGESTERONE 100 MG CAPSULE] 90 capsule 1 Sig: TAKE 1 CAPSULE BY MOUTH EVERY MORNING Last fill date: 01/12/23 Electronically signed by Felicita Shafer LVN at 0 02/26/2023 3:24 PM CDT 2023-02-15 12:00:00-00:00 Formatting of this note is d ifferent from the original. [facility] Images from the original note were not included. Venipuncture collection perf ormed by clean technique on the left anticubitus. Total of 1 attempts were made. Slight pressure and a bandage/dressing were applied to the site(s). The patient experienced n o complications. The followi ng specimens were processed according to instructions and sent to [facility] laboratories per lab order on 02/15/2023 : LT BLUE SST 7 RED LAV 1 PPT DK GREEN (LiHep) DK GREEN (SodH) ALEX DK BLUE (K2) DK BLUE (S) ACD Blood Culture NIPT/NTD Patient has been identified by and name and was provided with cup, antiseptic towelette, and clean catch instructions. 1 urine specimen(s) sent. Unpreserved 1 Urine Culture Aptima tube Other urine Electronically signed by Paramjit Farnsworth at 1:00 PM CDT 2023-02-09 09:00:23-00:00 Formatting of this note migh t be different from the original. [facility] I prefer to discuss the test ing in person to determine exactly what is needed. I apologize for any incontinences to that. Plan on doing the testing after our appointment together. Thank you Zoë Grove MD 2023-01-12 08:45:00-00:00 Formatting of this note is d ifferent from the original. [facility] Images from the original note were not included. Per pt she last ate at 0230 , she would like to continue with lipid panel. All orders for Zoë Grove MD. Claudio Muñoz 01/12/2023 8:56 AM Venipuncture collection perf ormed by clean technique on the left anticubitus. Total of 1 attempts were made. Slight pressure and a bandage/dressing were applied to the site(s). The patient experienced n o complications. The followi ng specimens were processed according to instructions and sent to [facility] laboratories per lab order on 01/12/2023: LT BLUE SST 1 RED LAV 1 PPT DK GREEN (LiHep) DK GREEN (SodH) ALEX DK BLUE (K2) DK BLUE (S) ACD Blood Culture NIPT/NTD Electronically signed by Claudio Muñoz at 9:04 AM CDT
--- NOTE | 2023-03-05 20:35 | EDPHYS ---
Physician Documentation [facility] Name: Cassandra Burnett Age: 57 yrs Sex: Female : 1965 Arrival Date: 03/05/2023 Time: 20:10 Bed IW3 Private MD: ED Physician Hosea Franklin HPI: 03/05 20:40 This 57 yrs old Female presents to ER via Ambulatory with complaints of Rash. kb 20:40 The patient's rash thought to be caused by Contact allergy. The rash is located on the kb right arm and left arm. The rash can be described as erythematous. Onset: The symptoms/episode began/occurred yesterday. Associated signs and symptoms: Pertinent positives: itching. Severity of symptoms: At their worst the symptoms were mild moderate in the emergency department the symptoms are unchanged. The patient has not experienced similar symptoms in the past. The patient has not recently seen a physician. Historical: - Allergies: 20:35 Sulfa (Sulfonamide Antibiotics); me1 20:35 PENICILLINS; me1 - PMHx: 20:35 Hypercholesterolemia; Diabetes mellitus; Osteoarthritis; Migraine; me1 - PSHx: 20:35 lap band; Cholecystectomy; bladder suspension; uterine cancer; tubal ligation; me1 - Immunization history:: Adult Immunizations up to date. - Social history:: Smoking status: Patient denies any tobacco usage or history of. ROS: 20:39 Constitutional: Negative for fever, chills, and weight loss, kb 20:39 Skin: Positive for rash, of the right arm and left arm, 20:39 All other systems are negative, Exam: 20:39 Constitutional: This is a well developed, well nourished patient who is awake, alert, kb and in no acute distress. Head/Face: Normocephalic, atraumatic. ENT: Moist Mucous membranes Cardiovascular: Regular rate Respiratory: Respirations even and unlabored. No increased work of breathing. Talking in full sentences MS/ Extremity: Pulses equal, no cyanosis. Neurovascular intact. Full, normal range of motion. Neuro: Awake and alert, GCS 15, oriented to person, place, time, and situation. Moves all extremities. Normal gait. 20:39 Skin: rash a mild rash is noted, consistent with contact dermatitis, on the right arm and left arm, Vital Signs: 20:33 BP 166 / 107; Pulse 75; Resp 17; Temp 98.4(TE); Pulse Ox 100% on R/A; Weight 58.51 kg; me1 Height 4 ft. 11 in. ; 20:33 Body Mass Index 26.05 (58.51 kg, 149.86 cm) me1 MDM: 20:19 Patient medically screened. kb 20:40 Differential diagnosis: impetigo, allergic reaction, parasite infection. Data reviewed: kb vital signs, nurses notes. Counseling: I had a detailed discussion with the patient and/or guardian regarding the historical points, exam findings, and any diagnostic results supporting the discharge/admit diagnosis, the need for outpatient follow up, a family practitioner, to return to the emergency department if symptoms worsen or persist or if there are any questions or concerns that arise at home. Administered Medications: 21:21 Drug: Famotidine PO 20 mg PO once Route: PO; as6 21:21 Follow up: Response: No adverse reaction as6 21:21 Drug: predniSONE PO 40 mg PO once Route: PO; as6 21:21 Follow up: Response: No adverse reaction as6 Disposition: 03/06 08:48 Co-signature as Attending Physician, Hosea Franklin MD I agree with the assessment sp4 and plan of care. I reviewed the patient's care provided by the Advanced Practice Provider and agree with the diagnosis and treatment plan. Disposition Summary: 03/05/23 20:34 Discharge Ordered Notes: Location: Home kb Condition: Stable kb Diagnosis - Allergic contact dermatitis, unspecified cause kb Followup: kb - With: Emergency Department - When: As needed - Reason: Worsening of condition Followup: kb - With: Private Physician - When: 2 - 3 days - Reason: Recheck today's complaints, Continuance of care, Re-evaluation by your physician Discharge Instructions: - Discharge Summary Sheet kb - Contact Dermatitis, [id number] kb Forms: - Medication Reconciliation Form kb - Thank You Letter kb - Antibiotic Education kb - Prescription Opioid Use kb - Patient Portal Instructions kb - Leadership Thank You Letter kb Prescriptions: - mupirocin 2 % Topical ointment - apply 1 application by TOPICAL route 2 to 3 times per day; 1 unit; Refills: 0, kb Product Selection Permitted - Pepcid 20 mg Oral Tablet - take 1 tablet by ORAL route every 12 hours for 5 days; 10 tablet; Refills: 0, kb Product Selection Permitted - Prednisone 20 mg Oral Tablet - take 1 tablet by ORAL route once daily for 5 days; 5 tablet; Refills: 0, kb Product Selection Permitted Signatures: Betty Frank FNP-C FNP-Ckb Slawson, Ashby, RN RN as6 Hosea Franklin MD MD sp4 Arleen Fitzgerald RN RN me1
--- NOTE | 2023-03-05 21:23 | ER ---
Nurse's Notes [facility] Name: Cassandra Burnett Age: 57 yrs Sex: Female : 1965 Arrival Date: 03/05/2023 Time: 20:10 Bed IW3 Private MD: Diagnosis: Allergic contact dermatitis, unspecified cause Presentation: 03/05 20:33 Chief complaint: Patient states: rash started on left arm yesterday morning and has me1 spread with a few on the right arm now. Coronavirus screen: Vaccine status: Patient reports receiving the 2nd dose of the covid vaccine. Ebola Screen: No symptoms or risks identified at this time. Initial Sepsis Screen: Does the patient meet any 2 criteria? No. Patient's initial sepsis screen is negative. Does the patient have a suspected source of infection? No. Patient's initial sepsis screen is negative. Risk Assessment: Do you want to hurt yourself or someone else? Patient reports no desire to harm self or others. Onset of symptoms was March 04, 2023. 20:33 Method Of Arrival: Ambulatory me1 20:33 Acuity: YAZAN 5 me1 Historical: - Allergies: 20:35 Sulfa (Sulfonamide Antibiotics); me1 20:35 PENICILLINS; me1 - PMHx: 20:35 Hypercholesterolemia; Diabetes mellitus; Osteoarthritis; Migraine; me1 - PSHx: 20:35 lap band; Cholecystectomy; bladder suspension; uterine cancer; tubal ligation; me1 - Immunization history:: Adult Immunizations up to date. - Social history:: Smoking status: Patient denies any tobacco usage or history of. Screenin:22 [facility] ED Fall Risk Assessment (Adult) Score/Fall Risk Level 0 - 2 = Low Risk. Abuse as6 screen: Denies threats or abuse. Denies injuries from another. Nutritional screening: No deficits noted. Tuberculosis screening: No symptoms or risk factors identified. Assessment: 21:21 General: Appears in no apparent distress. Behavior is calm, cooperative. Pain: as6 Complains of pain in left arm. Respiratory: Respiratory effort is even, unlabored, Respiratory pattern is regular, symmetrical. Derm: Rash noted that is papular, red, raised, on right arm and left arm. Vital Signs: 20:33 BP 166 / 107; Pulse 75; Resp 17; Temp 98.4(TE); Pulse Ox 100% on R/A; Weight 58.51 kg; me1 Height 4 ft. 11 in. ; 20:33 Body Mass Index 26.05 (58.51 kg, 149.86 cm) me1 ED Course: 20:14 Patient arrived in ED. jj6 20:15 Betty Frank [facility]-C [facility]. kb 20:15 Hosea Franklin MD is Attending Physician. kb 20:35 Triage completed. me1 20:35 Arm band placed on Patient placed in waiting room. me1 21:22 Bed in low position. Call light in reach. Provided Education on: follow up ,rx teching .as6 21:23 No provider procedures requiring assistance completed. Patient did not have IV access as6 during this emergency room visit. Administered Medications: 21:21 Drug: Famotidine PO 20 mg PO once Route: PO; as6 21:21 Follow up: Response: No adverse reaction as6 21:21 Drug: predniSONE PO 40 mg PO once Route: PO; as6 21:21 Follow up: Response: No adverse reaction as6 Medication: 21:22 VIS not applicable for this client. as6 Outcome: 20:34 Discharge ordered by MD. kb 21:22 Discharged to home ambulatory, with family, as6 21:22 Condition: stable 21:22 Discharge instructions given to patient, Instructed on discharge instructions, follow up and referral plans. medication usage, Demonstrated understanding of instructions, follow-up care, medications, Prescriptions given X 3, 21:23 Patient left the ED. as6 Signatures: Betty Frank FNP-C FNP-Ckb Jeffries, Jennifer jj6 Luis Bernard, CHANELL RN as6 Arleen Fitzgerald RN RN me1
[2023-03-05] MEDS ORDERED: FAMOTIDINE 20 MG TAB ONE (21:29)
[2023-03-05] MEDS ORDERED: predniSONE 20 MG TAB ONE (21:29)
[2023-03-05 22:46] VITALS: BP 166/107; TEMP 98.4; O2SAT 100
== END 2023-03-05 21:23 | disposition home or self-care (01) ==
LOC: ER 20:10
DX: L23.9 Allergic contact dermatitis, unspecified cause (principal); Z88.0 Allergy status to penicillin; Z88.2 Allergy status to sulfonamides
CPT/HCPCS: J7512

== ENCOUNTER 2023-04-11 15:43 | Emergency (ER) | payer OTHER ==
--- OUTSIDE RECORDS SUMMARY | 2023-04-11 15:47 | XMS REPORT | Continuity of Care Document ---
:1965 Author Organization [facility] t Address [address] [place] [address] [place] [id number] Care Team Providers Name Role Phone ROSINA PIMENTEL Primary Care Physician Unavailable DEE ARMSTRONG Attending Clinician Unavailable SCOTTY JUAREZ Attending Clinician Unavailable ZOË GROVE Attending Clinician Unavailable LISHA HAIRSTON Attending Clinician Unavailable LISHA HAIRSTON Attending Clinician Unavailable UNKNOWN, ATTENDING Attending Clinician Unavailable Zoë Grove MD Attending Clinician [phone] Lab, Ang - Db Attending Clinician Unavailable Doctor Unassigned, [place] Attending Clinician Unavailable ROSINA PIMENTEL Attending Clinician Unavailable Payers Payer Name Policy Type Policy Number Effective Date Expiration Date S ource [employer] CHOICE [id number] 2020 00:00:00 [employer] MEDICARE [id number] 2020 ADV 00:00:00 Problems Condition Condition Condition [...] Acquired Disease Active Unive rs hypothyroi hypothyroi 01-12 it y of dism dism 00:00: 00 Medical Branch Gastroesop Gastroesop Disease Active U nivers hageal hageal 01-12 ity of reflux reflux 00:00: [place] disease [...] vers SP INGREDI 01-12 ity of 00:00: 00 Medical Branch PENICILL DRUG Active Med Hives Univers IN INGREDI 01-12 ity of 00:00: [place] 00 Medical Branch Penicill Propensi Active Rash Method i ins ty to 08-09 adverse 00:00: Hospita reaction 00 l s to drug Sulfa Propensi Active Other (See delirium Me thodi (Sulfona ty to Comments) 08-09 mide adverse 00:00: Hospita Antibiot reaction 00 l ics) s to drug NO KNOWN Drug Active Univers ALLERGIE Class ity of S [facility] Social History Social Habit Start Date Stop Date Quantity Comments Source Gender identity [facility] Sexual orientation [facility] Alcohol intake 2023-02-15 2023-02-15 .29 /d University of 00:00:00 00:00:00 [facility] Tobacco use and 2023-01-12 2023-01-12 Smokeless Universit y of exposure 00:00:00 00:00:00 tobacco non-user [facility] [place] History of Social 2023-01-12 2023-01-12 Univers ity of function 00:00:00 00:00:00 [facility] Sex [birth year] Jainism 00:00:00 00:00:00 Hospital Smoking Status Start Date Stop Date Source Tobacco smoking consumption Meth [facility] unknown Never smoked tobacco [facility] Medications Ordered Filled Start Stop Current Ordering Indication Dosage Frequency Signature Comments Components Source Medication Medication Date Date Medication? Clinician (SIG) Name Name [facility]-19 Yes [id number] 1{each} 1 Each as Univers antigen 9-20 needed for ity of test 00:00: Other [place] ([facility] AT-[facility] sympotms). Branch TEST) Kit HYDROcodone Yes 2745 1{tbl} Take 1 Un robert -acetaminop 9-13 tablet by ity of hen 10-325 00:00: mouth [place] mg tablet 00 every 6 Medical (six) Branch hours as needed for Pain (scale 7-10). Indication s: chronic pain HYDROcodone Yes 2745 1{tbl} Take 1 Un robert -acetaminop 9-13 tablet by ity of hen 10-325 00:00: mouth [place] mg tablet 00 every 6 Medical (six) Branch hours as needed for Pain (scale 7-10). Indication s: chronic pain HYDROcodone Yes 2745 1{tbl} Take 1 Un robert -acetaminop 9-13 tablet by ity of hen 10-325 00:00: mouth [place] mg tablet 00 every 6 Medical (six) Branch hours as needed for Pain (scale 7-10). Indication s: chronic pain HYDROcodone 2022-0 Yes 2745 1{tbl} Take 1 Un robert -acetaminop 9-13 tablet by ity of hen 10-325 00:00: mouth [place] mg tablet 00 every 6 Medical (six) Branch hours as needed for Pain (scale 7-10). Indication s: chronic pain gabapentin 2023-0 Yes 300mg Take 0.5 Un robert 600 mg 8-31 tablets by ity of tablet 11:10: mouth at [place] [address] bedtime. Medical Branch gabapentin 2023-0 Yes 300mg Take 0.5 Un ro[facility] 600 mg 8-31 tablets by ity of tablet 11:10: mouth at [place] [address] bedtime. Medical Branch gabapentin 2023-0 Yes 300mg Take 0.5 Un [facility] 600 mg 8-31 tablets by ity of tablet 11:10: mouth at [place] [address] bedtime. Medical Branch gabapentin 2023-0 Yes 300mg Take 0.5 Un ro[facility] 600 mg 8-31 tablets by ity of tablet 11:10: mouth at [place] [address] bedtime. Medical Branch gabapentin 2023-0 Yes 300mg Take 0.5 Un ro[facility] 600 mg 8-31 tablets by ity of tablet 11:10: mouth at [place] [address] bedtime. Medical Branch gabapentin 2023-0 Yes 300mg Take 0.5 Un ro[facility] 600 mg 8-31 tablets by ity of tablet 11:10: mouth at [place] [address] bedtime. Medical Branch gabapentin 2023-0 Yes 300mg Take 0.5 Un robert 600 mg 8-31 tablets by ity of tablet 11:10: mouth at [place] [address] bedtime. Medical Branch gabapentin 2023-0 Yes 300mg Take 0.5 Un robert 600 mg 8-31 tablets by ity of tablet 11:10: mouth at [place] [address] bedtime. Medical Branch gabapentin 2023-0 Yes 300mg Take 0.5 Un robert 600 mg 8-31 tablets by ity of tablet 11:10: mouth at [place] [address] bedtime. Medical Branch gabapentin 2023-0 Yes 300mg Take 0.5 Un robert 600 mg 8-31 tablets by ity of tablet 11:10: mouth at [place] [address] bedtime. Medical Branch progesteron 2023-0 2023- No 100mg Take 1 Un robert e 100 mg 7-28 07-28 capsule by ity of capsule 08:38: 00:00 mouth in [place] 36 :00 the Medical morning. Branch ondansetron 2023-0 2023- No 4mg Take 1 Uni vers 4 mg tablet -12 01- tablet by it y of 08:38: 00:00 mouth [place] 36 :00 every 6 Medical (six) Branch hours as needed for Nausea and Vomiting (N/V). progesteron 2023-0 2023- No 100mg Take 1 Un robert e 100 mg -12 01- capsule by ity of capsule 08:38: 00:00 mouth in [place] 36 :00 the Medical morning. Branch ondansetron 2023-0 2023- No 4mg Take 1 Uni vers 4 mg tablet -12 01- tablet by it y of 08:38: 00:00 mouth [place] 36 :00 every 6 Medical (six) Branch hours as needed for Nausea and Vomiting (N/V). gabapentin 2023-0 Yes 300mg Take 0.5 Un robert 600 mg 7-28 tablets by ity of tablet 08:27: mouth at [place] [address] bedtime. Medical Branch gabapentin 2023-0 Yes 300mg Take 0.5 Un robert 600 mg 7-28 tablets by ity of tablet 08:27: mouth at [place] [address] bedtime. Medical Branch gabapentin 2023-0 Yes 300mg Take 0.5 Un robert 600 mg 7-28 tablets by ity of tablet 08:27: mouth at [place] [address] bedtime. Medical Branch gabapentin 2023-0 Yes 300mg Take 0.5 Un robert 600 mg 7-28 tablets by ity of tablet 08:27: mouth at [place] [address] bedtime. Medical Branch pantoprazol 2023-0 Yes 40mg [...] for Branch Indigestio n. ondansetron 3-0 Yes [id number] 4mg Take 1 Univers 4 mg tablet 7-28 tablet by ity of 00:00: mouth [place] 00 every 8 Medical (eight) Branch hours as needed for Nausea and Vomiting (N/V). progesteron 2023-0 Yes [id number] 100mg Take 1 Univers e 100 mg 7-28 capsule by ity o f capsule 00:00: mouth in [place] 00 the Medical morning. Branch ondansetron 3-0 Yes [id number] 4mg Take 1 Univers 4 mg tablet 7-28 tablet by ity of 00:00: mouth [place] 00 every 8 Medical (eight) Branch hours as needed for Nausea and Vomiting (N/V). progesteron 2023-0 Yes [id number] 100mg Take 1 Univers e 100 mg 7-28 capsule by ity o f capsule 00:00: mouth in [place] 00 the Medical morning. Branch ondansetron 3-0 Yes [id number] 4mg Take 1 Univers 4 mg tablet 7-28 tablet by ity of 00:00: mouth [place] 00 every 8 Medical (eight) Branch hours as needed for Nausea and Vomiting (N/V). progesteron 2023-0 Yes [id number] 100mg Take 1 Univers e 100 mg 7-28 capsule by ity o f capsule 00:00: mouth in [place] 00 the Medical morning. Branch ondansetron 3-0 Yes [id number] 4mg Take 1 Univers 4 mg tablet 7-28 tablet by ity of 00:00: mouth [place] 00 every 8 Medical (eight) Branch hours as needed for Nausea and Vomiting (N/V). progesteron 2023-0 Yes [id number] 100mg Take 1 Univers e 100 mg 7-28 capsule by ity o f capsule 00:00: mouth in [place] 00 the Medical morning. Branch ondansetron 3-0 Yes [id number] 4mg Take 1 Univers 4 mg tablet 7-28 tablet by ity of 00:00: mouth [place] 00 every 8 Medical (eight) Branch hours as needed for Nausea and Vomiting (N/V). progesteron 2023-0 Yes [id number] 100mg Take 1 Univers e 100 mg 7-28 capsule by ity o f capsule 00:00: mouth in [place] 00 the Medical morning. Branch ondansetron 3-0 Yes [id number] 4mg Take 1 Univers 4 mg tablet 7-28 tablet by ity of 00:00: mouth [place] 00 every 8 Medical (eight) Branch hours as needed for Nausea and Vomiting (N/V). progesteron 2023-0 Yes [id number] 100mg Take 1 Univers e 100 mg 7-28 capsule by ity o f capsule 00:00: mouth in [place] 00 the Medical morning. Branch ondansetron 3-0 Yes [id number] 4mg Take 1 Univers 4 mg tablet 7-28 tablet by ity of 00:00: mouth [place] 00 every 8 Medical (eight) Branch hours as needed for Nausea and Vomiting (N/V). progesteron 2023-0 Yes [id number] 100mg Take 1 Univers e 100 mg 7-28 capsule by ity o f capsule 00:00: mouth in [place] 00 the Medical morning. Branch ondansetron 3-0 Yes [id number] 4mg Take 1 Univers 4 mg tablet 7-28 tablet by ity of 00:00: mouth [place] 00 every 8 Medical (eight) Branch hours as needed for Nausea and Vomiting (N/V). progesteron 3-0 Yes [id number] 100mg Take 1 Univers e 100 mg 7-28 capsule by ity o f capsule 00:00: mouth in [place] 00 the Medical morning. Branch ondansetron 2022-0 Yes [id number] 4mg Take 1 Univers 4 mg tablet 7-28 tablet by ity of 00:00: mouth [place] 00 every 8 Medical (eight) Branch hours as needed for Nausea and Vomiting (N/V). progesteron 2023-0 Yes [id number] 100mg Take 1 Univers e 100 mg 7-28 capsule by ity o f capsule 00:00: mouth in [place] 00 the Medical morning. Branch ondansetron 3-0 Yes [id number] 4mg Take 1 Univers 4 mg tablet 7-28 tablet by ity of 00:00: mouth [place] 00 every 8 Medical (eight) Branch hours as needed for Nausea and Vomiting (N/V). progesteron 2023-0 Yes [id number] 100mg Take 1 Univers e 100 mg 7-28 capsule by ity o f capsule 00:00: mouth in [place] 00 the Medical morning. Branch ondansetron 3-0 Yes [id number] 4mg Take 1 Univers 4 mg tablet 7-28 tablet by ity of 00:00: mouth [place] 00 every 8 Medical (eight) Branch hours as needed for Nausea and Vomiting (N/V). progesteron 2023-0 Yes [id number] 100mg Take 1 Univers e 100 mg 7-28 capsule by ity o f capsule 00:00: mouth in [place] 00 the Medical morning. Branch ondansetron 3-0 Yes [id number] 4mg Take 1 Univers 4 mg tablet 7-28 tablet by ity of 00:00: mouth [place] 00 every 8 Medical (eight) Branch hours as needed for Nausea and Vomiting (N/V). progesteron 2023-0 Yes [id number] 100mg Take 1 Univers e 100 mg 7-28 capsule by ity o f capsule 00:00: mouth in [place] 00 the Medical morning. Branch ondansetron 3-0 Yes [id number] 4mg Take 1 Univers 4 mg tablet 7-28 tablet by ity of 00:00: mouth [place] 00 every 8 Medical (eight) Branch hours as needed for Nausea and Vomiting (N/V). progesteron 3-0 Yes [id number] 100mg Take 1 Univers e 100 mg 7-28 capsule by ity o f capsule 00:00: mouth in [place] 00 the Medical morning. Branch ondansetron 3-0 Yes [id number] 4mg Take 1 Univers 4 mg tablet 7-28 tablet by ity of 00:00: mouth [place] 00 every 8 Medical (eight) Branch hours as needed for Nausea and Vomiting (N/V). progesteron 3-0 Yes [id number] 100mg Take 1 Univers e 100 mg 7-28 capsule by ity o f capsule 00:00: mouth in [place] 00 the Medical morning. Branch clonazePAM 3-0 Yes PLEASE SEE U nivers 1 mg tablet 7-25 ATTACHED ity of 00:00: FOR [place] DETAILED Medical DIRECTIONS Branch clonazePAM 3-0 Yes PLEASE SEE U nivers 1 mg tablet 7-25 ATTACHED ity of 00:00: FOR [place] DETAILED Medical DIRECTIONS Branch clonazePAM 3-0 Yes PLEASE SEE U nivers 1 mg tablet 7-25 ATTACHED ity of 00:00: FOR [place] DETAILED Medical DIRECTIONS Branch clonazePAM 3-0 Yes PLEASE SEE U nivers 1 mg tablet 7-25 ATTACHED ity of 00:00: FOR [place] DETAILED Medical DIRECTIONS Branch clonazePAM 2023-0 Yes PLEASE SEE U nivers 1 mg tablet 7-25 ATTACHED ity of 00:00: FOR [place] DETAILED Medical DIRECTIONS Branch clonazePAM 2023-0 Yes PLEASE SEE U nivers 1 mg tablet 7-25 ATTACHED ity of 00:00: FOR [place] DETAILED Medical DIRECTIONS Branch clonazePAM 2023-0 Yes PLEASE SEE U nivers 1 mg tablet 7-25 ATTACHED ity of 00:00: FOR [place] DETAILED Medical DIRECTIONS Branch clonazePAM 2023-0 Yes PLEASE SEE U nivers 1 mg tablet 7-25 ATTACHED ity of 00:00: FOR [place] DETAILED Medical DIRECTIONS Branch clonazePAM 2023-0 Yes PLEASE SEE U nivers 1 mg tablet 7-25 ATTACHED ity of 00:00: FOR [place] DETAILED Medical DIRECTIONS Branch clonazePAM 2023-0 Yes PLEASE SEE U nivers 1 mg tablet 7-25 ATTACHED ity of 00:00: FOR [place] DETAILED Medical DIRECTIONS Branch HYDROcodone 2023-0 Yes [...] 00 TIMES A Medical DAY Branch HYDROcodone 3-0 Yes TAKE 1 Univ ers -acetaminop 7-18 TABLET BY ity of hen 10-325 00:00: MOUTH FOUR [place] mg tablet 00 TIMES A Medical DAY Branch HYDROcodone 2023-0 Yes TAKE 1 Univ ers -acetaminop 7-18 TABLET BY ity of hen 10-325 00:00: MOUTH FOUR [place] mg tablet 00 TIMES A Medical DAY Branch HYDROcodone 3-0 Yes TAKE 1 Univ ers -acetaminop 7-18 TABLET BY ity of hen 10-325 00:00: MOUTH FOUR [place] mg tablet 00 TIMES A Medical DAY Branch HYDROcodone 3-0 2023- No TAKE 1 Uni vers -acetaminop 7-18 09-13 TABLET BY it y of hen 10-325 00:00: 00:00 MOUTH FOUR [place] mg tablet 00 :00 TIMES A Medical DAY Branch dextroamphe 2023-0 Yes 20mg Take 1 Univ [...] and 1 tablet in the evening. levothyroxi 2022-0 Yes 150ug Take 1 Uni [...] by ity of tablet 00:00: mouth in [place] 00 the Medical morning. Branch meloxicam 2015-0 Yes 15mg Take 1 Univer s 15 mg 1-01 tablet by ity of tablet 00:00: mouth in [place] 00 the Medical morning. Branch meloxicam 2015-0 Yes 15mg Take 1 Univer s 15 mg 1-01 tablet by ity of tablet 00:00: mouth in [place] 00 the Medical morning. Branch meloxicam 2015-0 Yes 15mg Take 1 Univer s 15 mg 1-01 tablet by ity of tablet 00:00: mouth in [place] 00 the Medical morning. Branch meloxicam 2015-0 Yes 15mg Take 1 Univer s 15 mg 1-01 tablet by ity of tablet 00:00: mouth in [place] 00 the Medical morning. Branch meloxicam 2015-0 Yes 15mg Take 1 Univer s 15 mg 1-01 tablet by ity of tablet 00:00: mouth in [place] 00 the Medical morning. Branch meloxicam 2016-0 Yes 15mg Take 1 Univer s 15 mg 1-01 tablet by ity of tablet 00:00: mouth in [place] 00 the Medical morning. Branch meloxicam 2016-0 Yes 15mg Take 1 Univer s 15 mg 1-01 tablet by ity of tablet 00:00: mouth in [place] 00 the Medical morning. Branch meloxicam 2016-0 Yes 15mg Take 1 Univer s 15 mg 1-01 tablet by ity of tablet 00:00: mouth in [place] 00 the Medical morning. Branch meloxicam 2015-0 Yes 15mg Take 1 Univer s 15 mg 1-01 tablet by ity of tablet 00:00: mouth in [place] 00 the Medical morning. Branch meloxicam 2016-0 Yes 15mg Take 1 Univer s 15 mg 1-01 tablet by ity of tablet 00:00: mouth in [place] 00 the Medical morning. Branch meloxicam 2016-0 Yes 15mg Take 1 Univer s 15 mg 1-01 tablet by ity of tablet 00:00: mouth in [place] 00 the Medical morning. Branch meloxicam 2016-0 Yes 15mg Take 1 Univer s 15 mg 1-01 tablet by ity of tablet 00:00: mouth in [place] 00 the Medical morning. Branch meloxicam 2016-0 Yes 15mg Take 1 Univer s 15 mg 1-01 tablet by ity of tablet 00:00: mouth in [place] 00 the Medical morning. Branch sucralfate 2015-0 [...] by ity of tablet 00:00: mouth 2 [place] 00 (two) Medical times Branch daily as [...] tablet 00:00: mouth (four) Medical times Branch daily. dicyclomine 2015-0 Yes 20mg Take 1 Univ ers 20 mg 1-01 tablet by ity of tablet 00:00: mouth 2 (two) Medical times Branch daily as needed. sucralfate 2015-0 Yes 1g Take 1 Unive rs 1 gram 1-01 tablet by ity of tablet 00:00: mouth (four) Medical times Branch daily. dicyclomine 2015-0 Yes 20mg Take 1 Univ ers 20 mg 1-01 tablet by ity of tablet 00:00: mouth 2 (two) Medical times Branch daily as needed. gabapentin 2022- No 600mg Take 1 Uni vers 600 mg 06-18 tablet by ity of tablet 00:00: 00:00 mouth in [place] 00 :00 the Medical morning Branch and 1 tablet at noon and 1 tablet in the evening. gabapentin 2022- No 600mg Take 1 Uni vers 600 [...] mcg/actuati for on nasal Allergies. spray montelukast 2004-0 Yes 10mg Take 1 Univ ers 10 mg 1-01 tablet by ity of tablet 00:00: mouth at [place] 00 bedtime. Medical Branch fluticasone 2004-0 Yes 2{spray Use 2 Un robert propionate 1-01 } Sprays in ity of (ALLERGY 00:00: each [place] RELIEF, 00 nostril Medical FLUTICASONE once daily Br anch ,) 50 as needed mcg/actuati for on nasal Allergies. spray montelukast 2004-0 Yes 10mg Take 1 Univ ers 10 mg 1-01 tablet by ity of tablet 00:00: mouth at [place] 00 bedtime. Medical Branch fluticasone 0 Yes 2{spray Use 2 Un robert propionate 1-01 } Sprays in ity of (ALLERGY 00:00: each [place] RELIEF, 00 nostril Medical FLUTICASONE once daily Br anch ,) 50 as needed mcg/actuati for on nasal Allergies. spray montelukast 2004-0 Yes 10mg Take 1 Univ ers 10 mg 1-01 tablet by ity of tablet 00:00: mouth at [place] 00 bedtime. Medical Branch fluticasone 0 Yes 2{spray Use 2 Un robert propionate 1-01 } Sprays in ity of (ALLERGY 00:00: each [place] RELIEF, 00 nostril Medical FLUTICASONE once daily Br anch ,) 50 as needed mcg/actuati for on nasal Allergies. spray montelukast 2004-0 Yes 10mg Take 1 Univ ers 10 mg 1-01 tablet by ity of tablet 00:00: mouth at [place] 00 bedtime. Medical Branch fluticasone 2004-0 Yes 2{spray Use 2 Un robert propionate 1-01 } Sprays in ity of (ALLERGY 00:00: each [place] RELIEF, 00 nostril Medical FLUTICASONE once daily Br anch ,) 50 as needed mcg/actuati for on nasal Allergies. spray montelukast 2004-0 Yes 10mg Take 1 Univ ers 10 mg 1-01 tablet by ity of tablet 00:00: mouth at [place] 00 bedtime. Medical Branch fluticasone 2005-0 Yes 2{spray Use 2 Un robert propionate 1-01 } Sprays in ity of (ALLERGY 00:00: each [place] RELIEF, 00 nostril Medical FLUTICASONE once daily Br anch ,) 50 as needed mcg/actuati for on nasal Allergies. spray montelukast Yes 10mg Take 1 Univ ers 10 mg 1-01 tablet by ity of tablet 00:00: mouth at [place] 00 bedtime. Medical Branch fluticasone Yes 2{spray Use 2 Un robert propionate 1-01 } Sprays in ity of (ALLERGY 00:00: each [place] RELIEF, 00 nostril Medical FLUTICASONE once daily Br anch ,) 50 as needed mcg/actuati for on nasal Allergies. spray montelukast Yes 10mg Take 1 Univ ers 10 mg 1-01 tablet by ity of tablet 00:00: mouth at [place] 00 bedtime. Medical Branch fluticasone Yes 2{spray Use 2 Un robert propionate 1-01 } Sprays in ity of (ALLERGY 00:00: each [place] RELIEF, 00 nostril Medical FLUTICASONE once daily Br anch ,) 50 as needed mcg/actuati for on nasal Allergies. spray montelukast Yes 10mg Take 1 Univ ers 10 mg 1-01 tablet by ity of tablet 00:00: mouth at [place] 00 bedtime. Medical Branch fluticasone Yes 2{spray Use 2 Un robert propionate 1-01 } Sprays in ity of (ALLERGY 00:00: each [place] RELIEF, 00 nostril Medical FLUTICASONE once daily Br anch ,) 50 as needed mcg/actuati for on nasal Allergies. spray montelukast Yes 10mg Take 1 Univ ers 10 mg 1-01 tablet by ity of tablet 00:00: mouth at [place] 00 bedtime. Medical Branch fluticasone Yes 2{spray Use 2 Un robert propionate 1-01 } Sprays in ity of (ALLERGY 00:00: each [place] RELIEF, 00 nostril Medical FLUTICASONE once daily Br anch ,) 50 as needed mcg/actuati for on nasal Allergies. spray montelukast 0 Yes 10mg Take 1 Univ ers 10 mg 1-01 tablet by ity of tablet 00:00: mouth at [place] [address] bedtime. Medical Branch fluticasone Yes 2{spray Use 2 Un robert propionate 1-01 } Sprays in ity of (ALLERGY 00:00: each [place] RELIEF, 00 nostril Medical FLUTICASONE once daily Br anch ,) 50 as needed mcg/actuati for on nasal Allergies. spray montelukast Yes 10mg Take 1 Univ ers 10 mg 1-01 tablet by ity of tablet 00:00: mouth at [place] [address] bedtime. Medical Branch fluticasone Yes 2{spray Use 2 Un robert propionate 1-01 } Sprays in ity of (ALLERGY 00:00: each [place] RELIEF, 00 nostril Medical FLUTICASONE once daily Br anch ,) 50 as needed mcg/actuati for on nasal Allergies. spray montelukast Yes 10mg Take 1 Univ ers 10 mg 1-01 tablet by ity of tablet 00:00: mouth at [place] [address] bedtime. Medical Branch fluticasone Yes 2{spray Use 2 Un robert propionate 1-01 } Sprays in ity of (ALLERGY 00:00: each [place] RELIEF, 00 nostril Medical FLUTICASONE once daily Br anch ,) 50 as needed mcg/actuati for on nasal Allergies. spray montelukast Yes 10mg Take 1 Univ ers 10 mg 1-01 tablet by ity of tablet 00:00: mouth at [place] [address] bedtime. Medical Branch fluticasone Yes 2{spray Use 2 Un robert propionate 1-01 } Sprays in ity of (ALLERGY 00:00: each [place] RELIEF, 00 nostril Medical FLUTICASONE once daily Br anch ,) 50 as needed mcg/actuati for on nasal Allergies. spray montelukast Yes 10mg Take 1 Univ ers 10 mg 1-01 tablet by ity of tablet 00:00: mouth at [place] [address] bedtime. Medical Branch EPINEPHrine 0 Yes Univer s (EPIPEN) 1- ity of 0.3 mg/0.3 00:00: [place] mL 00 Medical injection Branch EPINEPHrine Yes Univer s (EPIPEN) 1-01 ity of 0.3 mg/0.3 00:00: [place] mL 00 Medical injection Branch EPINEPHrine Yes Univer s (EPIPEN) 1- ity of [...] and 1 tablet in the evening. OXcarbazepi 1992- Yes 600mg Take 1 Uni vers ne 1-01 tablet by ity of (TRILEPTAL) 00:00: mouth in [place] 600 mg 00 the Medical tablet morning Branch and 1 tablet in the evening. OXcarbazepi Yes 600mg Take 1 Uni vers ne [...] Source Systolic blood 2023-02-15 15:59:00 123 mm[Hg] [facility] Diastolic blood 2023-02-15 15:59:00 73 mm[Hg] [facility] [place] Heart rate 2023-02-15 15:59:00 84 /min [facility] Body temperature 2023-02-15 15:59:00 36.44 [facility] Respiratory rate 2023-02-15 15:59:00 18 /min [facility] Body height 2023-02-15 15:59:00 149.9 cm [facility] [place] [facility] [place] Body weight 2023-02-15 15:59:00 59.739 kg Universi ty of [facility] BMI 2023-02-15 15:59:00 26.60 kg/m2 Universi ty of [facility] Oxygen saturation in 2023-02-15 15:59:00 99 /min University of Arterial blood by [facility] Pulse oximetry Branch Systolic blood 2023-01-12 12:59:00 115 mm[Hg] Univer sity of pressure [facility] Diastolic blood 2023-01-12 12:59:00 71 mm[Hg] Unive rsity of [facility] Heart rate 2023-01-12 12:59:00 79 /min Universi ty of [facility] Respiratory rate 2023-01-12 12:59:00 18 /min Univ ersity of [facility] Body height 2023-01-12 12:59:00 149.9 cm Universi ty of [facility] Body weight 2023-01-12 12:59:00 60.601 kg [facility] [place] [facility] [place] BMI 2023-01-12 12:59:00 26.98 kg/m2 [facility]i ty of [facility] Oxygen saturation in 2023-01-12 12:59:00 97 /min University of Arterial blood by [facility] Pulse oximetry Branch Procedures Procedure Date / Time Performing Clinician Source Performed CREATINE KINASE 2023-02-15 17:08:00 [facility] URIC ACID 2023-02-15 17:08:00 [facility] o [facility] RHEUMATOID FACTOR 2023-02-15 17:08:00 [facility] C-REACTIVE PROTEIN 2023-02-15 17:08:00 [facility] SEDIMENTATION RATE 2023-02-15 17:08:00 [facility] VITAMIN D, 25-OH 2023-02-15 17:08:00 [facility] HIV 1/2 AG-AB WITH 2023-02-15 17:08:00 [facility] [place] REFLEX Zoë Tsang [facility] SYPHILIS IGG/IGM 2023-02-15 [facility]:08[facility] Start End Encounter Admission Attending Care Care Encounter Source Date/Time Date/Time Type Type Clinicians Facility Department ID 2023-03-29 2023-03-29 Outpatient R PATTI [facility] [id number] Univers 14:00:00 14:00:00 DEE itnixon [facility] 2023-03-19 2023-03-19 Outpatient R LISHA HAIRSTON [facility] [id number] Univers 15:20:00 15:20:00 LISHA HAIRSTON [facility] 2023-03-07 2023-03-07 Outpatient R CARISA [facility] [id number] Univers 10:20:00 10:20:00 ATTENDING [facility] 2023-03-06 2023-03-06 [facility] 1.2.840.114 [id number] Univers 00:00:00 00:00:00 Secure , [employer] 350.1.13.10 ity of [place] 4.2.7.2.686 Richard as TERRANCE?BLEA [phone] [address] MEDICAL OFFICE BUILDING 2023-03-06 2023-03-06 Patient Estrella [facility] 1.2.840.114 [id number] Univers 00:00:00 00:00:00 Secure , [employer] [facility] 350.1.13.10 ity of [place] 4.2.7.2.686 Richard as TERRANCE?BLEA [phone] [address] MEDICAL OFFICE BUILDING 2023-03-04 2023-03-04 Refill Estrella [facility] 1.2.840.114 [id number] Univers 00:00:00 00:00:00 , [facility] HE[facility] 350.1.13.10 ity of [place] 4.2.7.2.686 Richard as TERRANCE?BLEA [phone] [address] MEDICAL OFFICE BUILDING 2023-02-26 2023-02-26 Patient Estrella [facility] 1.2.840.114 [id number] Univers 00:00:00 00:00:00 Secure Msg , Zoë EDWARDS 350.1.13.10 ity of [place] 4.2.7.2.686 Richard as TERRANCE?BLEA [phone] [address] MEDICAL OFFICE [facility] 2023-02-23 2023-02-23 Refill [facility] 1.2.840.114 [id number] Univers 00:00:00 00:00:00 , Zoë EDWARDS 350.1.13.10 ity of [place] 4.2.7.2.686 Richard as TERRANCE?BLEA [phone] [address] OFFICE [facility] 2023-02-22 2023-02-22 Outpatient R PATTI [facility] [id number] Univers 15:40:00 15:40:00 [facility]23-[facility] 2023-02-15 Imaging Nurse Lab, [facility] 1.2.840.1 14 [id number] [facility] 12:00:00 12:17:24 Visit EstrellaChristianoZoë [place] [facility] 350.1 .13.10 ity of [place] 4.2.7.2.686 Richard as TERRANCE?BLEA [phone] [facility] [address] [facility] OFFICE [facility] 2023-02-15 2023-02-15 Office [facility] 1.2.840.114 10 [id number] Univers 11:00:00 11:48:40 Visit , Zoë EDWARDS 350.1.13.10 ity of [place] 4.2.7.2.686 Richard as TERRANCE?BLEA [phone] [address] MEDICAL OFFICE [facility] 2023-02-15 2023-02-15 Outpatient R [facility] [id number] Univers 11:00:00 11:48:40 , ZOË it y [facility] 2023-02-09 2023-02-09 Patient Doctor MUKESH 1.2.840.114 [id number] Univers 00:00:00 00:00:00 Secure Msg Unassigned, MICHELLE 350.1.13.10 ity of [facility] 4.2.7.2.686 Richard as [phone] [address] 2023-01-12 2023-01-12 Outpatient R ESTRELLA [facility] [id number] Univers 08:45:00 09:09:12 , ZOË it y of [facility] 2023-01-12 2023-01-12 Imaging Nurse Lab, Ang - Db [facility] 1.2.840.1 [id number] Univers 08:45:00 09:00:00 Visit [place] [facility] 350.1 .13.10 [facility] 4.2.7.2.686 Richard as TERRANCE?BLEA [phone] [address] MEDICAL OFFICE BUILDING 2023-01-12 2023-01-12 Office [facility] 1.2.840.114 [id number] [facility] 08:00:00 08:45:51 Visit , Zoë EDWARDS 350.1.13.10 ity of [place] 4.2.7.2.686 Richard as TERRANCE?BLEA [id number] [address] MEDICAL OFFICE BUILDING 2023-01-11 2023-01-11 Patient [facility] 1.2.840.114 [id number] [facility] 00:00:00 00:00:00 Secure Zoë Juan 350.1.13.10 ity of [place] 4.2.7.2.686 Richard as TERRANCE?BLEA [phone] [address] MEDICAL OFFICE BUILDING 2022-10-10 2022-10-10 Outpatient ANNIKA PIMENTEL [facility] [id number] [facility] 00:00:00 00:00:00 [facility] 2021-08-09 2021-08-09 Emergency [facility] [id number] [address] [place] [place] 00:00:00 00:00:[address] Results This patient has no known results.
--- NOTE | 2023-04-11 16:53 | RAD REPORT ---
EXAM DESCRIPTION: RAD - Chest Single View - 04/11/2023 4:46 pm CLINICAL HISTORY: COUGH Chest pain. COMPARISON: No comparisons FINDINGS: Portable technique limits examination quality. The lungs are grossly clear. The heart is normal in size. No displaced fractures. IMPRESSION: No acute intrathoracic process suspected.
--- NOTE | 2023-04-11 17:21 | EDPHYS ---
Physician Documentation [facility] Name: Cassandra Burnett Age: 57 yrs Sex: Female : 1965 Arrival Date: 04/11/2023 Time: 15:43 Bed 9 Private MD: ED Physician Talat Schmidt HPI: 04/11 16:03 This 57 yrs old Female presents to ER via Ambulatory with complaints of Flu Symptoms. jh7 16:03 Onset: The symptoms/episode began/occurred 3 day(s) ago. Associated signs and symptoms: jh7 Pertinent positives: congestion, cough, sore throat, Pertinent negatives: abdominal pain, chest pain, fever. Historical: - Allergies: 16:03 Sulfa (Sulfonamide Antibiotics); cm10 16:03 PENICILLINS; cm10 - PMHx: 16:03 diabetes mellitus; Hypercholesterolemia; Migraine; osteoarthritis; Lupus erythematosus; cm10 Rheumatoid arthritis; Fibromyalgia; - PSHx: 16:03 bladder suspension; Cholecystectomy; lap band; tubal ligation; uterine cancer; cm10 - Immunization history:: Adult Immunizations unknown. - Social history:: Smoking status: Patient denies any tobacco usage or history of. ROS: 16:03 Eyes: Negative for injury, pain, redness, and discharge, Neck: Negative for injury, jh7 pain, and swelling, Cardiovascular: Negative for chest pain, palpitations, and edema, Abdomen/GI: Negative for abdominal pain, nausea, vomiting, diarrhea, and constipation, Back: Negative for injury and pain, MS/Extremity: Negative for injury and deformity, Skin: Negative for injury, rash, and discoloration, Neuro: Negative for headache, weakness, numbness, tingling, and seizure, 16:03 Constitutional: Positive for fatigue, malaise, 16:03 ENT: Positive for sinus congestion, sore throat, 16:03 Respiratory: Positive for cough, 16:03 All other systems are negative, Exam: 16:03 Constitutional: This is a well developed, well nourished patient who is awake, alert, jh7 and in no acute distress. Head/Face: Normocephalic, atraumatic. Neck: Trachea midline, no thyromegaly or masses palpated, and no cervical lymphadenopathy. Supple, full range of motion without nuchal rigidity, or vertebral point tenderness. No Meningismus. Cardiovascular: Regular rate and rhythm with a normal S1 and S2. No gallops, murmurs, or rubs. Normal PMI, no JVD. No pulse deficits. Respiratory: Lungs have equal breath sounds bilaterally, clear to auscultation and percussion. No rales, rhonchi or wheezes noted. No increased work of breathing, no retractions or nasal flaring. Abdomen/GI: Soft, non-tender, with normal bowel sounds. No distension or tympany. No guarding or rebound. No evidence of tenderness throughout. Back: No spinal tenderness. No costovertebral tenderness. Full range of motion. Skin: Warm, dry with normal turgor. Normal color with no rashes, no lesions, and no evidence of cellulitis. MS/ Extremity: Pulses equal, no cyanosis. Neurovascular intact. Full, normal range of motion. Neuro: Awake and alert, GCS 15, oriented to person, place, time, and situation. Motor strength 5/5 in all extremities. Sensory grossly intact. Normal gait. 16:03 ENT: Posterior pharynx: erythema, is not appreciated, pooling of secretions, that are mild, Vital Signs: 16:02 BP 107 / 75; Pulse 88; Resp 16; Temp 98.7(O); Pulse Ox 99% on R/A; Weight 58.51 kg (R); cm10 Height 4 ft. 11 in. ; Pain 9/10; 16:43 Pulse 92; Resp 18; Pulse Ox 99% on Nebulizer Mask; ph 17:41 BP 109 / 72; Pulse 94; Resp 18; Temp 98.1; Pulse Ox 99% on R/A; ph 16:02 Body Mass Index 26.05 (58.51 kg, 149.86 cm) cm10 16:02 Pain Scale: Adult cm10 MDM: 15:47 Patient medically screened. [facility] 17:18 Differential diagnosis: viral Infection, bacterial infection, URI, bronchitis, jh7 pneumonia. Data reviewed: vital signs, nurses notes, radiologic studies, plain films. I considered the following discharge prescriptions or medication management in the emergency department Medications were administered in the Emergency Department. See MAR. Independent interpretation of the following test(s) in the Emergency Department X-Ray: My interpretation is no acute abnormalities. Care significantly affected by the following chronic conditions: Diabetes. Counseling: I had a detailed discussion with the patient and/or guardian regarding the historical points, exam findings, and any diagnostic results supporting the discharge/admit diagnosis, to return to the emergency department if symptoms worsen or persist or if there are any questions or concerns that arise at home. Response to treatment: the patient's symptoms have mildly improved after treatment. 04/11 15:54 Order name: Flu; Complete Time: 17:15 [facility] 04/11 15:54 Order name: COVID-19 SARS RT PCR; Complete Time: 17:15 [facility] 04/11 15:54 Order name: XRAY Chest (1 view); Complete Time: 16:54 [facility] Administered Medications: 16:42 Drug: Albuterol Inhalation 2.5 mg Inhalation once Route: Inhalation; ph 17:41 Follow up: Response: No adverse reaction ph Disposition Summary: 04/11/23 17:20 Discharge Ordered Notes: Location: [place] [address] Problem: new [facility] Symptoms: have improved [facility] Condition: Stable [facility] Diagnosis - Acute upper respiratory infection, unspecified [facility] Followup: [facility] - With: Private Physician - When: 2 - 3 days - Reason: Recheck today's complaints Discharge Instructions: - Discharge Summary Sheet [facility] - Upper Respiratory Infection, Adult [facility] - Viral Respiratory Infection [facility] Forms: - Medication Reconciliation Form [facility] - Thank You Letter [facility] - Patient Portal Instructions [facility] - Leadership Thank You Letter [facility] Prescriptions: - Tessalon Perles 100 mg Oral Capsule - take 1 capsule ORAL route every 8 hours As needed; 15 capsule; Refills: 0, jh7 Product Selection Permitted Signatures: Dispatcher [employer] Violette Valdez RN CHANELL Sandrita Yo, DISTANCE EDUCATION COORDINATOR [place] [id number] Cyndee Bah RN RN cm10
--- NOTE | 2023-04-11 17:21 | ER ---
Nurse's Notes [facility] Name: Cassandra Burnett Age: 57 yrs Sex: Female : 1965 Arrival Date: 04/11/2023 Time: 15:43 Bed 9 Private MD: Diagnosis: Acute upper respiratory infection, unspecified Presentation: 04/11 16:02 Chief complaint: Patient states: Flu like symptoms onset 2 days ago. pt reports, cm10 productive cough, congestion and fatigue. Coronavirus screen: Vaccine status: Patient reports receiving the 2nd dose of the covid vaccine. Client denies travel out of the [place] in the last 14 days. Ebola Screen: Patient denies travel to an Ebola-affected area in the 21 days before illness onset. No symptoms or risks identified at this time. Initial Sepsis Screen: Does the patient meet any 2 criteria? No. Patient's initial sepsis screen is negative. Does the patient have a suspected source of infection? No. Patient's initial sepsis screen is negative. Risk Assessment: Do you want to hurt yourself or someone else? Patient reports no desire to harm self or others. Onset of symptoms was April 11, 2023. 16:02 Method Of Arrival: Ambulatory cm10 16:02 Acuity: YAZAN 4 cm10 Historical: - Allergies: 16:03 Sulfa (Sulfonamide Antibiotics); cm10 16:03 PENICILLINS; cm10 - PMHx: 16:03 diabetes mellitus; Hypercholesterolemia; Migraine; osteoarthritis; Lupus erythematosus; cm10 Rheumatoid arthritis; Fibromyalgia; - PSHx: 16:03 bladder suspension; Cholecystectomy; lap band; tubal ligation; uterine cancer; cm10 - Immunization history:: Adult Immunizations unknown. - Social history:: Smoking status: Patient denies any tobacco usage or history of. Screenin:42 [facility] ED Fall Risk Assessment (Adult) History of falling in the last 3 months, ph including since admission No falls in past 3 months (0 pts) Score/Fall Risk Level 0 - 2 = Low Risk Oriented to surroundings, Maintained a safe environment, Provided non-skid footwear, Hourly rounding (assess needs \T\ fall precautionary measures) done. Abuse screen: Denies threats or abuse. Denies injuries from another. Nutritional screening: No deficits noted. Tuberculosis screening: No symptoms or risk factors identified. Assessment: 16:43 General: Appears in no apparent distress. comfortable, Behavior is calm, cooperative, ph appropriate for age. Pain: Denies pain. Neuro: Level of Consciousness is awake, alert, obeys commands, Oriented to person, place, time, situation. Cardiovascular: Capillary refill < 3 seconds in bilateral fingers Patient's skin is warm and dry. Respiratory: Reports shortness of breath at rest cough that is Airway is patent Respiratory effort is even, unlabored, Respiratory pattern is regular, symmetrical. Derm: Skin is pink, warm \T\ dry. Vital Signs: 16:02 BP 107 / 75; Pulse 88; Resp 16; Temp 98.7(O); Pulse Ox 99% on R/A; Weight 58.51 kg (R); cm10 Height 4 ft. 11 in. ; Pain 9/10; 16:43 Pulse 92; Resp 18; Pulse Ox 99% on Nebulizer Mask; ph 17:41 BP 109 / 72; Pulse 94; Resp 18; Temp 98.1; Pulse Ox 99% on R/A; ph 16:02 Body Mass Index 26.05 (58.51 kg, 149.86 cm) cm10 16:02 Pain Scale: Adult cm10 ED Course: 15:46 Patient arrived in ED. mr 15:47 Sandrita oY FNP [facility] 15:47 Talat Schmidt MD is Attending Physician. 7 16:03 Triage completed. cm10 16:04 Arm band placed on Patient placed in waiting room. cm10 16:04 COVID-19 SARS RT PCR Sent. cm10 16:04 Flu Sent. cm10 16:05 Violette Shah, RN is Primary Nurse. ph 16:43 Patient has correct armband on for positive identification. Bed in low position. Call ph light in reach. Side rails up X 1. Pulse ox on. NIBP on. 16:48 XRAY Chest (1 view) In Process Unspecified. EDMS 17:40 No provider procedures requiring assistance completed. Patient did not have IV access ph during this emergency room visit. Administered Medications: 16:42 Drug: Albuterol Inhalation 2.5 mg Inhalation once Route: Inhalation; ph 17:41 Follow up: Response: No adverse reaction ph Medication: 16:42 VIS not applicable for this client. ph Outcome: 17:20 Discharge ordered by . jh7 17:40 Discharged to home ambulatory, with family, ph 17:40 Condition: good 17:40 Discharge instructions given to patient, Instructed on discharge instructions, follow up and referral plans. medication usage, Demonstrated understanding of instructions, follow-up care, medications, Prescriptions given X 1, 17:41 Patient left the ED. ph Signatures: Dispatcher [employer] EDMS Kelli Cee, Reg Reg mr Violette Shah, RN RN ph Sandrita Yo, HANDS AND DIAL INSPECTOR HANDS AND DIAL INSPECTOR 7 Cyndee Bah RN RN cm10
[2023-04-12 16:02] VITALS: BP 109/72; TEMP 98.1; O2SAT 99
== END 2023-04-11 17:41 | disposition home or self-care (01) ==
LOC: ER 15:43
DX: J06.9 Acute upper respiratory infection, unspecified (principal); Z20.822 Contact with and (suspected) exposure to COVID-19; Z88.0 Allergy status to penicillin; Z88.2 Allergy status to sulfonamides
CPT/HCPCS: 71045; 87635; 87804